=== PATIENT | male | born 1945 | race Caucasian/White ===

== ENCOUNTER → 2019-05-18 | Outpatient (CLI) | payer MEDICARE ==
--- NOTE | 2019-05-18 15:07 | US ---
EXAMINATION TYPE: US bladder DATE OF EXAM: 05/18/2019 COMPARISON: NONE CLINICAL HISTORY: N39.0 Urinary tract infection. EXAM MEASUREMENTS: Post Void Residual Volume: 65.67 mL Color Doppler performed to assess ureteral jets. Bilateral Jets seen: Yes Normal Post Void Residual (less than 50ml): no, 65.67 ml. The urinary bladder is anechoic. IMPRESSION: Elevated post void residual volume.
== END | disposition home or self-care (01) ==
LOC: RADUSWWP 12:43
PROVIDERS: ATTEND Family Medicine
DX: N39.0 Urinary tract infection, site not specified (principal)
CPT/HCPCS: 76857

== ENCOUNTER 2019-07-29 12:53 | Inpatient (IN) | payer MEDICARE ==
[2019-07-29 15:08] LABS: Basophils # (A) 0.1 k/uL (0-0.2); Basophils % (A) 1 %; Eosinophils # (A) 0.1 k/uL (0-0.7); Eosinophils % (A) 1 %; HCT 38.6 % (39.0-53.0); HGB 13.5 gm/dL (13.0-17.5); Lymphocytes # (A) 1.3 k/uL (1.0-4.8); Lymphocytes % (A) 14 %; MCH 30.3 pg (25.0-35.0); MCHC 35.1 g/dL (31.0-37.0); MCV 86.5 fL (80.0-100.0); Mean Platelet Volume 6.5; Monocytes # (A) 0.5 k/uL (0-1.0); Monocytes % (A) 6 %; Neutrophils # (A) 7.5 k/uL (1.3-7.7); Neutrophils % (A) 78 %; Platelet Count 318 k/uL (150-450); RBC 4.46 m/uL (4.30-5.90); RDW 12.6 % (11.5-15.5); WBC 9.7 k/uL (3.8-10.6)
--- NOTE | 2019-07-29 15:13 | XR ---
EXAMINATION TYPE: XR chest 2V DATE OF EXAM: 07/29/2019 COMPARISON: 07/17/2010 HISTORY: Short of breath TECHNIQUE: Frontal and lateral views of the chest are obtained. FINDINGS: There is coarsening of the interstitial pulmonary markings. There is mild infiltrate at jero th lung bases. Heart appears enlarged. There are chest leads. IMPRESSION: There is pulmonary interstitial edema probably related to mild heart failure that is new compared to old exam. Mild bilateral basilar pulmonary infiltrates.
[2019-07-29 15:18] LABS: Partial Thromboplastin Time 26.2 sec (22.0-30.0); Prothrombin Time 10.5 sec (9.0-12.0)
[2019-07-29 15:19] LABS: Albumin 3.8 g/dL (3.5-5.0); Calcium 9.3 mg/dL (8.4-10.2); Potassium 4.4 mmol/L (3.5-5.1); Total Bilirubin 0.9 mg/dL (0.2-1.3); Total Protein 6.6 g/dL (6.3-8.2)
[2019-07-29] MEDS ORDERED: DILTIAZEM DRIP BOLUS FROM BAG 1 MG SOLN IV ONE ×2 (15:29→20:42)
[2019-07-29] MEDS ORDERED: DILTIAZEM 125 MG in SODIUM CHLORIDE 0.9% 100 ML IV SCH (15:30)
--- NOTE | 2019-07-29 15:32 | ED ---
General Adult HPI - General Chief complaint: Shortness of Breath Stated complaint: Sob Time Seen by Provider: 07/29/19 15:00 Source: patient, RN notes reviewed Mode of arrival: wheelchair Limitations: no limitations - History of Present Illness Initial comments: Patient is a pleasant 73-year-old male presenting to the emergency department with dyspnea. Symptoms have been present for the past week. No history of similar symptoms previously. Patient has exertional dyspnea and fatigue as well as orthopnea. No chest pain. No palpitations. Patient thinks his legs are slightly swollen. Patient did go to urgent care [facility] Patient denies any history of atrial fibrillation. - Related Data Home Medications Medication Instructions Recorded Confirmed Aspirin EC [Ecotrin Low Dose] 81 mg PO DAILY 07/29/19 07/29/19 Cholecalciferol [Vitamin D3 (25 1,000 unit PO DAILY 07/29/19 07/29/19 Mcg = 1000 Iu)] Fish Oil/Dha/Epa [Fish Oil 1,200 1 cap PO DAILY 07/29/19 07/29/19 mg Fish Oil] HYDROcodone/APAP 10-325MG [[place] 1 tab PO Q4HR PRN 07/29/19 07/29/19 10-325] Insulin Glargine [Lantus] 20 unit SQ HS 07/29/19 07/29/19 Lisinopril 40 mg PO DAILY 07/29/19 07/29/19 Pravastatin Sodium [Pravachol] 40 mg PO HS 07/29/19 07/29/19 amLODIPine [Norvasc] 10 mg PO DAILY 07/29/19 07/29/19 cloNIDine HCL [Catapres] 0.1 mg PO TID 07/29/19 07/29/19 glipiZIDE [Glucotrol XL] 10 mg PO DAILY 07/29/19 07/29/19 Allergies Allergy/AdvReac Type Severity Reaction Status Date / Time No Known Allergies Allergy Verified 07/29/19 14:48 Review of Systems ROS Statement: Those systems with pertinent positive or pertinent negative responses have been documented in the HPI. ROS Other: All systems not noted in ROS Statement are negative. Constitutional: Denies: fever Eyes: Denies: eye pain ENT: Denies: ear pain Respiratory: Reports: dyspnea Cardiovascular: Reports: dyspnea on exertion, orthopnea. Denies: chest pain, palpitations Endocrine: Reports: fatigue Gastrointestinal: Denies: vomiting Genitourinary: Denies: dysuria Musculoskeletal: Denies: back pain Skin: Denies: rash Neurological: Denies: weakness Past Medical History Past Medical History: Diabetes Mellitus, Hypertension History of Any Multi-Drug Resistant Organisms: None Reported Past Surgical History: Back Surgery, Orthopedic Surgery Additional Past Surgical History / Comment(s): (R) knee, (R) (L) rotator cuff, AAA stent, neck fusion. Past Psychological History: No Psychological Hx Reported Smoking Status: Never smoker Past Alcohol Use History: None Reported Past Drug Use History: None Reported General Exam Limitations: no limitations General appearance: alert, in no apparent distress Head exam: Present: atraumatic Eye exam: Present: normal appearance Neck exam: Present: normal inspection Respiratory exam: Present: normal lung sounds bilaterally Cardiovascular Exam: Present: tachycardia, irregular rhythm Expanded Peripheral pulses: 2+: Radial (R), Radial (L), Dorsalis Pedis (R), Dorsalis Pedis (L) GI/Abdominal exam: Present: soft. Absent: tenderness Extremities exam: Present: pedal edema (Trace bilateral). Absent: calf tenderness Neurological exam: Present: alert Psychiatric exam: Present: normal affect, normal mood Skin exam: Present: normal color Course Vital Signs 07/29/19 07/29/19 07/29/19 13:03 14:58 15:53 Temperature 97.7 F Pulse Rate 66 137 H 152 H Respiratory 20 18 18 Rate Blood Pressure 122/89 123/103 129/102 O2 Sat by Pulse 93 L 96 94 L Oximetry - Reevaluation(s) Reevaluation #1: 07/29/19 16:24 Patient was reevaluated and updated. Case was discussed in detail with Dr. Madden, covering for Dr. Islas, who will admit. EKG Findings - EKG Comments: EKG Findings:: A. fib with RVR, rate 155. QRS 92. QT to 48. QTC 398. Normal axis. Poor R-wave progression. No acute ST change. Medical Decision Making - Lab Data Result diagrams: 07/29/19 14:39 07/29/19 14:39 Lab Results 07/29/19 07/29/19 07/29/19 Range/Units 14:39 14:39 14:39 WBC 9.7 (3.8-10.6) k/uL RBC 4.46 (4.30-5.90) m/uL Hgb 13.5 (13.0-17.5) gm/dL Hct 38.6 L (39.0-53.0) % MCV 86.5 (80.0-100.0) fL MCH 30.3 (25.0-35.0) pg MCHC 35.1 (31.0-37.0) g/dL RDW 12.6 (11.5-15.5) % Plt Count 318 (150-450) k/uL Neutrophils % 78 % Lymphocytes % 14 % Monocytes % 6 % Eosinophils % 1 % Basophils % 1 % Neutrophils # 7.5 (1.3-7.7) k/uL Lymphocytes # 1.3 (1.0-4.8) k/uL Monocytes # 0.5 (0-1.0) k/uL Eosinophils # 0.1 (0-0.7) k/uL Basophils # 0.1 (0-0.2) k/uL PT (9.0-12.0) sec INR (<1.2) APTT (22.0-30.0) sec Sodium 142 (137-145) mmol/L Potassium 4.4 (3.5-5.1) mmol/L Chloride 107 (98-107) mmol/L Carbon Dioxide 24 (22-30) mmol/L Anion Gap 11 mmol/L BUN 22 H (9-20) mg/dL Creatinine 1.34 H (0.66-1.25) mg/dL Est GFR (CKD-EPI)AfAm 60 (>60 ml/min/1.73 sqM) Est GFR (CKD-EPI)NonAf 52 (>60 ml/min/1.73 sqM) Glucose 114 H (74-99) mg/dL Calcium 9.3 (8.4-10.2) mg/dL Total Bilirubin 0.9 (0.2-1.3) mg/dL AST 24 (17-59) U/L ALT 43 (21-72) U/L Alkaline Phosphatase 131 H (38-126) U/L Troponin I (0.000-0.034) ng/mL NT-Pro-B Natriuret Pep 3030 pg/mL Total Protein 6.6 (6.3-8.2) g/dL Albumin 3.8 (3.5-5.0) g/dL 07/29/19 07/29/19 Range/Units 14:39 14:39 WBC (3.8-10.6) k/uL RBC (4.30-5.90) m/uL Hgb (13.0-17.5) gm/dL Hct (39.0-53.0) % MCV (80.0-100.0) fL MCH (25.0-35.0) pg MCHC (31.0-37.0) g/dL RDW (11.5-15.5) % Plt Count (150-450) k/uL Neutrophils % % Lymphocytes % % Monocytes % % Eosinophils % % Basophils % % Neutrophils # (1.3-7.7) k/uL Lymphocytes # (1.0-4.8) k/uL Monocytes # (0-1.0) k/uL Eosinophils # (0-0.7) k/uL Basophils # (0-0.2) k/uL PT 10.5 (9.0-12.0) sec INR 1.0 (<1.2) APTT 26.2 (22.0-30.0) sec Sodium (137-145) mmol/L Potassium (3.5-5.1) mmol/L Chloride (98-107) mmol/L Carbon Dioxide (22-30) mmol/L Anion Gap mmol/L BUN (9-20) mg/dL Creatinine (0.66-1.25) mg/dL Est GFR (CKD-EPI)AfAm (>60 ml/min/1.73 sqM) Est GFR (CKD-EPI)NonAf (>60 ml/min/1.73 sqM) Glucose (74-99) mg/dL Calcium (8.4-10.2) mg/dL Total Bilirubin (0.2-1.3) mg/dL AST (17-59) U/L ALT (21-72) U/L Alkaline Phosphatase (38-126) U/L Troponin I <0.012 (0.000-0.034) ng/mL NT-Pro-B Natriuret Pep pg/mL Total Protein (6.3-8.2) g/dL Albumin (3.5-5.0) g/dL - Radiology Data Radiology results: image reviewed (Chest x-ray shows some CHF. ) Critical Care Time Critical Care Time: Yes Total Critical Care Time: 33 Disposition Clinical Impression: Congestive heart failure, Atrial fibrillation with RVR Disposition: ADMITTED IP TO THIS HOSP Condition: Serious Is patient prescribed a controlled substance at d/c from ED?: No Referrals: Floyd Islas DO [Primary Care Provider] - 1-2 days Decision Time: 16:25
[2019-07-29] MEDS ORDERED: HEPARIN SODIUM,PORCINE 5,000 UNIT/ML 1 ML VIAL IV PRN (16:27)
[2019-07-29] MEDS ORDERED: HEPARIN SODIUM,PORCINE 5,000 UNIT/ML 1 ML VIAL IV ONE (16:27)
[2019-07-29] MEDS: ASPIRIN 325 MG TAB PO STA ×2 (17:02→17:20)
[2019-07-29] MEDS: HEPARIN SOD,PORK IN 0.45% NACL 25,000 UNIT in 0.45% NACL 1 250ML.BAG IV SCH (17:06)
[2019-07-29] MEDS: NITROGLYCERIN OINT 1 INCH/GM PACKET TOPICAL SCH (17:40)
[2019-07-29] MEDS: FUROSEMIDE 10 MG/ML 4 ML VIAL IV SCH (17:41)
[2019-07-29] MEDS ORDERED: HYDROcodone/APAP 10-325MG 1 EACH TAB PO PRN (18:01)
[2019-07-29 20:40] LABS: Glucose,Whole Blood 148 mg/dL (75-99)
[2019-07-29] MEDS: DILTIAZEM 125 MG in SODIUM CHLORIDE 0.9% 100 ML IV SCH (21:03)
[2019-07-29] MEDS: INSULIN DETEMIR (LEVEMIR) 100 UNIT/ML SYR SQ SCH (21:04)
[2019-07-29] MEDS: PRAVASTATIN SODIUM 40 MG TAB PO SCH (21:04)
[2019-07-30] MEDS: NITROGLYCERIN OINT 1 INCH/GM PACKET TOPICAL SCH ×2 (00:14→09:34)
[2019-07-30] MEDS: cloNIDine HCL 0.1 MG TAB PO SCH ×4 (00:15→20:21)
[2019-07-30] MEDS: FUROSEMIDE 10 MG/ML 4 ML VIAL IV SCH ×2 (00:17→09:39)
[2019-07-30 05:58] LABS: Basophils % (A) 1 %; Eosinophils # (A) 0.1 k/uL (0-0.7); Eosinophils % (A) 2 %; HCT 36.6 % (39.0-53.0); HGB 12.7 gm/dL (13.0-17.5); Lymphocytes # (A) 1.3 k/uL (1.0-4.8); Lymphocytes % (A) 17 %; MCH 30.2 pg (25.0-35.0); MCHC 34.6 g/dL (31.0-37.0); MCV 87.3 fL (80.0-100.0); Mean Platelet Volume 6.3; Monocytes # (A) 0.5 k/uL (0-1.0); Monocytes % (A) 7 %; Neutrophils # (A) 5.8 k/uL (1.3-7.7); Neutrophils % (A) 73 %; Platelet Count 318 k/uL (150-450); RBC 4.19 m/uL (4.30-5.90); RDW 12.9 % (11.5-15.5)
[2019-07-30 06:09] LABS: Calcium 8.6 mg/dL (8.4-10.2); Potassium 3.9 mmol/L (3.5-5.1)
[2019-07-30 06:12] LABS: Glucose,Whole Blood 98 mg/dL (75-99)
[2019-07-30] MEDS: glipiZIDE 5 MG TAB PO SCH ×2 (06:23→17:15)
[2019-07-30] MEDS ORDERED: ASPIRIN 325 MG TAB PO SCH (09:00)
[2019-07-30] MEDS ORDERED: NON FORMULARY DRUG (Aspirin Ec 81 MG) PO SCH (09:00)
[2019-07-30] MEDS ORDERED: NON FORMULARY DRUG (Fish Oil/Dha/Epa [Fish Oil 1,200 Mg Fish Oil] 1 CAP) PO SCH (09:00)
[2019-07-30] MEDS ORDERED: DILTIAZEM DRIP BOLUS FROM BAG 1 MG SOLN IV ONE ×2 (09:26→11:56)
[2019-07-30] MEDS ORDERED: METOPROLOL TARTRATE 25 MG TAB PO SCH (09:30)
[2019-07-30] MEDS: amLODIPine 10 MG TAB PO SCH (09:33)
[2019-07-30] MEDS: CHOLECALCIFEROL 1,000 UNIT TAB PO SCH (09:34)
[2019-07-30] MEDS: LISINOPRIL 20 MG TAB PO SCH (09:34)
[2019-07-30] MEDS: DILTIAZEM 125 MG in SODIUM CHLORIDE 0.9% 100 ML IV SCH ×2 (11:16→19:03)
[2019-07-30 12:23] LABS: Glucose,Whole Blood 112 mg/dL (75-99)
--- NOTE | 2019-07-30 12:37 | P.CRDCN ---
History of Present Illness Consult date: 07/30/19 Requesting physician: Alberto Madden Consult reason: atrial fibrillation, congestive heart failure Chief complaint: Shortness of breath History of present illness: This is a 73-year-old gentleman with history of hypertension, diabetes, hyperlipidemia, prior history of smoking, history of abdominal aortic aneurysm for which he underwent repair by Dr. Ventura several years ago. Presented to the hospital on this occasion with symptoms of worsening shortness of breath for the past one week or so. Chest x-ray on presentation here showed pulmonary interstitial edema likely related to mild heart failure which is new as compared with prior exam. Mild bilateral basilar pulmonary infiltrates. EKG on admission shows atrial fibrillation with a rapid ventricular response. Blood pressure 108/60 with a heart rate of 140, 95% on 2 L of oxygen. White blood cell count 8.0, hemoglobin 12.7, platelet count 318. D-dimer 1.06, sodium 142, potassium 3.9, BUN 25 and creatinine 1.5, on admission the creatinine was 1.3. Troponins negative 3. BNP level 3030. TSH 1.4. At the time of my examination this morning, patient generally does not look well, he still complaining of feeling some shortness of breath, denies any chest discomfort. Denies any palpitations. According to him, this atrial fibrillation is new. Past Medical History Past Medical History: Diabetes Mellitus, Hypertension History of Any Multi-Drug Resistant Organisms: None Reported Past Surgical History: Back Surgery, Orthopedic Surgery Additional Past Surgical History / Comment(s): (R) knee, (R) (L) rotator cuff, AAA stent, neck fusion. Past Psychological History: No Psychological Hx Reported Smoking Status: Former smoker Past Alcohol Use History: None Reported Past Drug Use History: None Reported Medications and Allergies Home Medications Medication Instructions Recorded Confirmed Type Aspirin EC [Ecotrin Low Dose] 81 mg PO DAILY 07/29/19 07/29/19 History Cholecalciferol [Vitamin D3 (25 1,000 unit PO DAILY 07/29/19 07/29/19 History Mcg = 1000 Iu)] Fish Oil/Dha/Epa [Fish Oil 1,200 1 cap PO DAILY 07/29/19 07/29/19 History mg Fish Oil] HYDROcodone/APAP 10-325MG [[place] 1 tab PO Q4HR PRN 07/29/19 07/29/19 History 10-325] Insulin Glargine [Lantus] 20 unit SQ HS 07/29/19 07/29/19 History Lisinopril 40 mg PO DAILY 07/29/19 07/29/19 History Pravastatin Sodium [Pravachol] 40 mg PO HS 07/29/19 07/29/19 History amLODIPine [Norvasc] 10 mg PO DAILY 07/29/19 07/29/19 History cloNIDine HCL [Catapres] 0.1 mg PO TID 07/29/19 07/29/19 History glipiZIDE [Glucotrol XL] 10 mg PO DAILY 07/29/19 07/29/19 History Allergies Allergy/AdvReac Type Severity Reaction Status Date / Time No Known Allergies Allergy Verified 07/29/19 14:48 Physical Exam Vitals: Vital Signs Temp Pulse Pulse Resp BP BP Pulse Ox 07/30/19 11:20 97.6 F 138 H 22 107/59 95 07/30/19 08:00 98.1 F 150 H 22 134/84 93 L 07/30/19 03:50 133 H 20 106/66 93 L 07/30/19 00:00 98 F 141 H 18 127/80 96 07/29/19 20:00 97.9 F 140 H 18 117/69 94 L 07/29/19 17:09 163 H 18 101/64 95 07/29/19 15:53 152 H 18 129/102 94 L 07/29/19 14:58 137 H 18 123/103 96 07/29/19 13:03 97.7 F 66 20 122/89 93 L Intake and Output 07/29/19 07/30/19 07/30/19 22:59 06:59 14:59 Intake Total 400 153.748 212.432 Output Total 600 Balance 400 -446.252 212.432 Intake: Intake, IV Titration 153.748 212.432 Amount Diltiazem 125 mg In 125 Sodium Chloride 0.9% 100 ml @ 10 MG/HR 10 mls/hr IV .[id number] [facility] Rx#: [id number] Heparin Sod,Pork in 0.45% 153.748 87.432 NaCl 25,000 unit In 0.45 % NaCl 1 250ml.bag @ 8.62 UNITS/KG/HR 10.01 mls/hr IV .Q24H [facility] Rx#: [id number] Oral 400 0 Output: Urine 600 Other: # Voids 1 175 Weight 114 kg PHYSICAL EXAMINATION: GENERAL: 73-year-old gentleman in no acute distress at the time of my examination HEENT: Head is atraumatic, normocephalic. Pupils equal, round. Sclera anicteric. Conjunctiva are clear. Mucous membranes of the mouth are moist. Neck is supple. There is no elevated jugular venous pressure.No bruit is heard. HEART EXAMINATION: Heart S1 and S2 irregularly irregular CHEST EXAMINATION: Lungs reveal diminished air entry to bilateral bases with fine rales heard bilaterally. ABDOMEN: Soft, obese, nontender. Bowel sounds are heard. No organomegaly noted. EXTREMITIES: 2+ peripheral pulses with 1+ evidence of peripheral edema and no calf tenderness noted. NEUROLOGIC patient is awake, alert and oriented X3. . Results 07/30/19 05:24 07/30/19 05:24 Cardiac Enzymes 07/29/19 07/29/19 07/29/19 Range/Units 14:39 14:39 20:57 AST 24 (17-59) U/L Troponin I <0.012 0.012 (0.000-0.034) ng/mL 07/30/19 Range/Units 05:24 AST (17-59) U/L Troponin I <0.012 (0.000-0.034) ng/mL Coagulation 07/29/19 07/29/19 07/30/19 Range/Units 14:39 23:41 05:24 PT 10.5 (9.0-12.0) sec APTT 26.2 30.4 H 34.4 H (22.0-30.0) sec 07/30/19 Range/Units 11:00 PT (9.0-12.0) sec APTT 46.8 H (22.0-30.0) sec CBC 07/29/19 07/30/19 Range/Units 14:39 05:24 WBC 9.7 8.0 (3.8-10.6) k/uL RBC 4.46 4.19 L (4.30-5.90) m/uL Hgb 13.5 12.7 L (13.0-17.5) gm/dL Hct 38.6 L 36.6 L (39.0-53.0) % Plt Count 318 318 (150-450) k/uL Comprehensive Metabolic Panel 07/29/19 07/30/19 Range/Units 14:39 05:24 Sodium 142 142 (137-145) mmol/L Potassium 4.4 3.9 (3.5-5.1) mmol/L Chloride 107 107 (98-107) mmol/L Carbon Dioxide 24 26 (22-30) mmol/L BUN 22 H 25 H (9-20) mg/dL Creatinine 1.34 H 1.50 H (0.66-1.25) mg/dL Glucose 114 H 89 (74-99) mg/dL Calcium 9.3 8.6 (8.4-10.2) mg/dL AST 24 (17-59) U/L ALT 43 (21-72) U/L Alkaline Phosphatase 131 H (38-126) U/L Total Protein 6.6 (6.3-8.2) g/dL Albumin 3.8 (3.5-5.0) g/dL Current Medications Generic Name Dose Route Start Last Admin Trade Name Freq PRN Reason Stop Dose Admin Hydrocodone Bitart/Acetaminophen 1 each 07/29/19 18:01 [place] 10 PO Q4HR PRN Pain Amlodipine Besylate 10 mg 07/30/19 09:00 07/30/19 09:33 Norvasc PO Not Given DAILY [facility] Aspirin 81 mg 07/31/19 09:00 Aspirin PO DAILY [facility] Cholecalciferol 1,000 unit 07/30/19 09:00 07/30/19 09:34 Vitamin D3 (25 Mcg = 1000 Iu) PO 1,000 unit DAILY [facility] Administration Clonidine 0.1 mg 07/29/19 22:00 07/30/19 09:34 Catapres PO 0.1 mg TID [facility] Administration Glipizide 5 mg 07/30/19 07:30 07/30/19 06:23 Glucotrol PO Not Given AC-BID [facility] Heparin Sodium (Porcine) 0 unit 07/29/19 16:27 Heparin IV PER PROTOCOL PRN Low PTT Protocol Heparin Sodium/Sodium Chloride 250 mls @ 10.01 mls/hr 07/29/19 16:30 07/30/19 11:32 25,000 unit/ Sodium Chloride IV 16.62 units/kg/hr .Q24H [facility] 19.299 mls/hr Titration Protocol 8.62 UNITS/KG/HR Diltiazem HCl 125 mg/ Sodium 125 mls @ 10 mls/hr 07/29/19 20:45 07/30/19 11:16 Chloride IV 10 mg/hr .[id number] [facility] 10 mls/hr Administration 10 MG/HR Insulin Detemir 20 unit 07/29/19 21:00 07/29/19 21:04 Levemir SQ 20 unit HS [facility] Administration Lisinopril 40 mg 07/30/19 09:00 07/30/19 09:34 Zestril PO 40 mg DAILY [facility] Administration Metoprolol Tartrate 50 mg 07/30/19 16:00 Lopressor PO TID [facility] Pravastatin Sodium 40 mg 07/29/19 21:00 07/29/19 21:04 Pravachol PO 40 mg HS [facility] Administration Intake and Output 07/29/19 07/30/19 07/30/19 22:59 06:59 14:59 Intake Total 400 153.748 212.432 Output Total 600 Balance 400 -446.252 212.432 Intake: Intake, IV Titration 153.748 212.432 Amount Diltiazem 125 mg In 125 Sodium Chloride 0.9% 100 ml @ 10 MG/HR 10 mls/hr IV .[id number] [facility] Rx#: [id number] Heparin Sod,Pork in 0.45% 153.748 87.432 NaCl 25,000 unit In 0.45 % NaCl 1 250ml.bag @ 8.62 UNITS/KG/HR 10.01 mls/hr IV .Q24H [facility] Rx#: [id number] Oral 400 0 Output: Urine 600 Other: # Voids 1 175 Weight 114 kg 07/30/19 05:24 07/30/19 05:24 EKG Interpretations (text) EKG shows atrial fibrillation with rapid ventricular response Assessment and Plan Plan: Assessment and plan #1 atrial fibrillation with rapid ventricular response, appears to be of new onset #2 congestive cardiac failure, LV function unknown #3 hypertension #4 diabetes #5 hyperlipidemia #6 prior history of nicotine dependence #7 history of abdominal aortic aneurysm with prior repair #8 abnormal d-dimer Plan We will obtain an echocardiogram with Doppler study, obtain ultrasound of the abdomen because of prior history of abdominal aortic aneurysm, continue IV heparin, add Lopressor 50 3 times a day to the medication regime, increase Cardizem, discontinue IV Lasix and reassess in the morning. Because of the elevated d-dimer, we will also request a lung perfusion scan be performed. Further recommendations to follow. DNP note has been reviewed, I agree with a documented findings and plan of care. Patient was seen and examined.
[2019-07-30 14:08] VITALS: BMI 34.0
--- NOTE | 2019-07-30 14:36 | US ---
EXAMINATION TYPE: US abdomen complete DATE OF EXAM: 07/30/2019 COMPARISON: NONE CLINICAL HISTORY: hx of aortic aneurysm repair. EXAM MEASUREMENTS: Liver Length: 17. 7 cm Gallbladder Wall: 0.2 cm CBD: 0.3 cm Spleen: 11.3 cm Right Kidney: 10.6 x 4.7 x 4.6 cm Left Kidney: 10.7 x 4.5 x 4.7 cm Patient of large body habitus with extensive overlying bowel gas, technically difficult study. Pancreas: wnl Liver: Increased attenuation, upper limits of normal in size Gallbladder: wnl Evidence for sonographic Agrawal's sign: No CBD: wnl Spleen: wnl Right Kidney: lower pole cyst measures 3.1 x 3.5 x 3.7cm Left Kidney: wnl Upper IVC: wnl Abd Aorta: limited visualization, portions visualized appear wnl FF in LUQ suggestive of left pleural effusion IMPRESSION: 1. Increased attenuation of liver can be seen with fatty infiltration or hepatic steatosis. 2. Small left pleural effusion #3 simple appearing right renal cyst.
[2019-07-30] MEDS: METOPROLOL TARTRATE 50 MG TAB PO SCH ×2 (15:41→20:21)
--- NOTE | 2019-07-30 16:25 | NM ---
EXAMINATION TYPE: NM pul vent and perfuse DATE OF EXAM: 07/30/2019 COMPARISON: Correlation radiograph 07/29/2019 HISTORY: 73-year-old male difficulty breathing, shortness of breath TECHNIQUE: Utilizing inhalation of 69.4 mCi Tc 99m DTPA aerosol and intravenous injection of 4.98 mC i of Tc 99m MAA, ventilation and perfusion images are acquired post injection in multiple projections . FINDINGS: No mismatched perfusion defects. Ventilation images show some clumping of tracer within the central a irways. IMPRESSION: Very low probability for pulmonary embolus. Some clumping of tracer within the central airways can be seen with COPD. Clinically correlate.
[2019-07-30 17:04] LABS: Glucose,Whole Blood 216 mg/dL (75-99)
[2019-07-30] MEDS: PRAVASTATIN SODIUM 40 MG TAB PO SCH (20:21)
[2019-07-30 20:24] LABS: Glucose,Whole Blood 249 mg/dL (75-99)
[2019-07-30] MEDS: INSULIN DETEMIR (LEVEMIR) 100 UNIT/ML SYR SQ SCH (20:51)
[2019-07-30] MEDS: HEPARIN SOD,PORK IN 0.45% NACL 25,000 UNIT in 0.45% NACL 1 250ML.BAG IV SCH (20:52)
--- NOTE | 2019-07-30 21:03 | P.HPIM ---
History of Present Illness H&P Date: 07/30/19 Chief Complaint: short of breath history of presenting complaint: This is a 73-year-old patient of Dr. Ilsas.chronic stable medical conditions include diabetes, hypertension, chronic back pain. Patient for 1 week and then progressively getting short of breath. Slight cough. No fever or chills. He does heart racing. Appetite is okay. No sputum production. Patient is found to be in rapid went to tolerate. With A. fib. Was started on Cardizem drip. Also found to be in CHF.problem IV Lasix. Also had some edema. Admitted to the cardiology floor. No prior history of atrial fibrillation and CHF. Review of systems: GEN.: [tired and short of breath] EYES: [None] HEENT: [None] NECK: [None] RESPIRATORY: [as above] CARDIOVASCULAR: [as abovee] GASTROINTESTINAL: [None] GENITOURINARY: [None] MUSCULOSKELETAL: [some joint painse] LYMPHATICS: [None] HEMATOLOGICAL: [None] PSYCHIATRY: [None] NEUROLOGICAL: [None] social history: . Does smoke in the past. Family history: Reviewed, noncontributory to presentation Physical examination: VITAL SIGNS: [97.7, 137, 18, 123/103, 96% on 2 L] GENERAL: [BMI 34.1, propped up, short of breath]. EYES: [Pupils equal. Conjunctiva rosa m]l. HEENT: [External appearance of nose and ears normal, oral cavity grossly no rmal]. NECK: [JVD possibly raisedd; masses not palpable]. HEART: [heart sounds irregular; someedema]. LUNGS:[ Respiratory rate increased, decreased breath sounds]. ABDOMEN: [Soft, nontender, liver spleen not palpable, no masses palpable]. PSYCH: [Alert and oriented x3; mood and affect anxious]l. NEUROLOGICAL: [Cranial nerves grossly intact; no facial asymmetry, power and sensation grossly intact]. LYMPHATICS: [No lymph nodes palpable in the axilla and neck] INVESTIGATIONS, reviewed in the clinical context: white count 9.7 hemoglobin 13.5 potassium 4.4 bun 22 creatinine 1.34 EKG tracing personally reviewed by me-Atrial fibrillation rapid ventricular rate in the 140s Chest x-ray film personally reviewed by me-Pulmonary edema some cardiomegaly Assessment: -New onset of atrial fibrillation with rapid ventricular rate, uncontrolled -Acute congestive heart failure exacerbation, with contribution from atrial fibrillation, EF not known -diabetes mellitus type 2 on insulin -Essential hypertension Plan: Patient started IV Cardizem drip. Also in IV heparin. Cardiology was con sulted. Was also started on IV Lasix. Earlier today to Lasix was discontinued by cardiology. Accu-Cheks will be followed.2-D echo is pending. Heart rate is soft and was still running high. Care was discussed the patient the bedside. Question were answered. Past Medical History Past Medical History: Diabetes Mellitus, Hypertension History of Any Multi-Drug Resistant Organisms: None Reported Past Surgical History: Back Surgery, Orthopedic Surgery Additional Past Surgical History / Comment(s): (R) knee, (R) (L) rotator cuff, AAA stent, neck fusion. Past Psychological History: No Psychological Hx Reported Smoking Status: Former smoker Past Alcohol Use History: None Reported Past Drug Use History: None Reported Medications and Allergies Home Medications Medication Instructions Recorded Confirmed Type Aspirin EC [Ecotrin Low Dose] 81 mg PO DAILY 07/29/19 07/29/19 History Cholecalciferol [Vitamin D3 (25 1,000 unit PO DAILY 07/29/19 07/29/19 History Mcg = 1000 Iu)] Fish Oil/Dha/Epa [Fish Oil 1,200 1 cap PO DAILY 07/29/19 07/29/19 History mg Fish Oil] HYDROcodone/APAP 10-325MG [[place] 1 tab PO Q4HR PRN 07/29/19 07/29/19 History 10-325] Insulin Glargine [Lantus] 20 unit SQ HS 07/29/19 07/29/19 History Lisinopril 40 mg PO DAILY 07/29/19 07/29/19 History Pravastatin Sodium [Pravachol] 40 mg PO HS 07/29/19 07/29/19 History amLODIPine [Norvasc] 10 mg PO DAILY 07/29/19 07/29/19 History cloNIDine HCL [Catapres] 0.1 mg PO TID 07/29/19 07/29/19 History glipiZIDE [Glucotrol XL] 10 mg PO DAILY 07/29/19 07/29/19 History Allergies Allergy/AdvReac Type Severity Reaction Status Date / Time No Known Allergies Allergy Verified 07/29/19 14:48 Physical Exam Vitals: Vital Signs Temp Pulse Pulse Resp BP BP Pulse Ox 07/30/19 08:00 98.1 F 150 H 22 134/84 93 L 07/30/19 03:50 133 H 20 106/66 93 L 07/30/19 00:00 98 F 141 H 18 127/80 96 07/29/19 20:00 97.9 F 140 H 18 117/69 94 L 07/29/19 17:09 163 H 18 101/64 95 07/29/19 15:53 152 H 18 129/102 94 L 07/29/19 14:58 137 H 18 123/103 96 07/29/19 13:03 97.7 F 66 20 122/89 93 L Intake and Output 07/29/19 07/30/19 07/30/19 22:59 06:59 14:59 Intake Total 400 153.748 0 Output Total 600 Balance 400 -446.252 0 Intake: Intake, IV Titration 153.748 Amount Heparin Sod,Pork in 0.45% 153.748 NaCl 25,000 unit In 0.45 % NaCl 1 250ml.bag @ 8.62 UNITS/KG/HR 10.01 mls/hr IV .Q24H [facility] Rx#: [id number] Oral 400 0 Output: Urine 600 Other: # Voids 1 175 Weight 114 kg Results CBC & Chem 7: 07/30/19 05:24 07/30/19 05:24 Labs: Abnormal Lab Results - Last 24 Hours (Table) 07/29/19 07/29/19 07/29/19 Range/Units 14:39 14:39 20:38 RBC (4.30-5.90) m/uL Hgb (13.0-17.5) gm/dL Hct 38.6 L (39.0-53.0) % APTT (22.0-30.0) sec BUN 22 H (9-20) mg/dL Creatinine 1.34 H (0.66-1.25) mg/dL Glucose 114 H (74-99) mg/dL POC Glucose (mg/dL) 148 H (75-99) mg/dL Alkaline Phosphatase 131 H (38-126) U/L 07/29/19 07/30/19 07/30/19 Range/Units 23:41 05:24 05:24 RBC 4.19 L (4.30-5.90) m/uL Hgb 12.7 L (13.0-17.5) gm/dL Hct 36.6 L (39.0-53.0) % APTT 30.4 H 34.4 H (22.0-30.0) sec BUN (9-20) mg/dL Creatinine (0.66-1.25) mg/dL Glucose (74-99) mg/dL POC Glucose (mg/dL) (75-99) mg/dL Alkaline Phosphatase (38-126) U/L 07/30/19 Range/Units 05:24 RBC (4.30-5.90) m/uL Hgb (13.0-17.5) gm/dL Hct (39.0-53.0) % APTT (22.0-30.0) sec BUN 25 H (9-20) mg/dL Creatinine 1.50 H (0.66-1.25) mg/dL Glucose (74-99) mg/dL POC Glucose (mg/dL) (75-99) mg/dL Alkaline Phosphatase (38-126) U/L
[2019-07-31 05:51] LABS: Basophils % (A) 1 %; Eosinophils # (A) 0.2 k/uL (0-0.7); Eosinophils % (A) 2 %; HCT 35.6 % (39.0-53.0); HGB 12.1 gm/dL (13.0-17.5); Lymphocytes # (A) 1.6 k/uL (1.0-4.8); Lymphocytes % (A) 18 %; MCH 29.7 pg (25.0-35.0); MCHC 33.9 g/dL (31.0-37.0); MCV 87.4 fL (80.0-100.0); Mean Platelet Volume 6.8; Monocytes # (A) 0.6 k/uL (0-1.0); Monocytes % (A) 7 %; Neutrophils % (A) 71 %; Platelet Count 330 k/uL (150-450); RBC 4.07 m/uL (4.30-5.90); RDW 12.9 % (11.5-15.5); WBC 8.5 k/uL (3.8-10.6)
[2019-07-31 06:35] LABS: Glucose,Whole Blood 123 mg/dL (75-99)
[2019-07-31] MEDS: CHOLECALCIFEROL 1,000 UNIT TAB PO SCH (09:20)
[2019-07-31] MEDS: LISINOPRIL 20 MG TAB PO SCH (09:20)
[2019-07-31] MEDS: ASPIRIN 81 MG PO SCH (09:20)
[2019-07-31] MEDS: METOPROLOL TARTRATE 50 MG TAB PO SCH ×3 (09:20→20:34)
[2019-07-31] MEDS: glipiZIDE 5 MG TAB PO SCH ×2 (09:20→17:50)
[2019-07-31] MEDS: cloNIDine HCL 0.1 MG TAB PO SCH ×3 (09:21→20:34)
[2019-07-31] MEDS: amLODIPine 10 MG TAB PO SCH (09:21)
[2019-07-31] MEDS ORDERED: AMIODARONE 360 MG in DEXTROSE 5% IN WATER 200 ML IV ONE ×2 (10:55)
[2019-07-31] MEDS ORDERED: DEXTROSE 5% IN WATER 100 ML with AMIODARONE 150 MG IV ONE (10:55)
[2019-07-31] MEDS: HEPARIN SOD,PORK IN 0.45% NACL 25,000 UNIT in 0.45% NACL 1 250ML.BAG IV SCH ×2 (11:35→20:38)
[2019-07-31 11:43] LABS: Glucose,Whole Blood 189 mg/dL (75-99)
[2019-07-31] MEDS: DILTIAZEM 125 MG in SODIUM CHLORIDE 0.9% 100 ML IV SCH (12:09)
[2019-07-31] MEDS ORDERED: FUROSEMIDE 10 MG/ML 4 ML VIAL IV STA (12:51)
--- NOTE | 2019-07-31 13:01 | ECHOF ---
Referral Reason:afib MEASUREMENTS -------- HEIGHT: 182.9 cm WEIGHT: 113.9 kg BP: 107/59 RVIDd: 3.7 cm (< 3.3) IVSd: 1.4 cm (0.6 - 1.1) LVIDd: 3.8 cm (3.9 - 5.3) LVPWd: 1.3 cm (0.6 - 1.1) IVSs: 1.5 cm LVIDs: 3.7 cm LVPWs: 2.1 cm LA Diam: 5.2 cm (2.7 - 3.8) LAESV Index (A-L): 47.25 ml/m Ao Diam: 3.7 cm (2.0 - 3.7) AV Cusp: 1.1 cm (1.5 - 2.6) LA Diam: 4.1 cm (2.7 - 3.8) MV EXCURSION: 19.913 mm (> 18.000) MV EF SLOPE: 136 mm/s (70 - 150) EPSS: 1.3 cm RAP: 5.00 mmHg RVSP: 31.57 mmHg FINDINGS -------- Atrial fibrillation. This was a technically adequate study. The left ventricular size is normal. There is mild concentric left ventricular hypertrophy. Overa ll left ventricular systolic function is low-normal with, an EF between 50 - 55 %. Left ventricular fillimg pressure cannot be estimated due to Atrial fibrillation. The right ventricle is normal in size. The right atrial size is normal. There is mild aortic valve sclerosis. There is no evidence of aortic regurgitation. Mild mitral annular calcification present. Mild mitral regurgitation is present. Mild tricuspid regurgitation present. There is no evidence of pulmonary hypertension. The right v entricular systolic pressure, as measured by Doppler, is 31.57mmHg. Trace/mild (physiologic) pulmonic regurgitation. The aortic root size is normal. There is no pericardial effusion. CONCLUSIONS -------- 1. Atrial fibrillation. 2. This was a technically adequate study. 3. The left ventricular size is normal. 4. There is mild concentric left ventricular hypertrophy. 5. Overall left ventricular systolic function is low-normal with, an EF between 50 - 55 %. 6. Left ventricular fillimg pressure cannot be estimated due to Atrial fibrillation. 7. The right ventricle is normal in size. 8. The right atrial size is normal. 9. There is mild aortic valve sclerosis. 10. Mild mitral annular calcification present. 11. Mild mitral regurgitation is present. 12. Mild tricuspid regurgitation present. 13. There is no evidence of pulmonary hypertension. 14. The right ventricular systolic pressure, as measured by Doppler, is 31.57mmHg. 15. Trace/mild (physiologic) pulmonic regurgitation. 16. The aortic root size is normal. 17. There is no pericardial effusion. [employer]: Lakshmi Medley RDCS
--- NOTE | 2019-07-31 16:08 | P.PN ---
Subjective Progress Note Date: 07/31/19 This is a 73-year-old gentleman with history of hypertension, diabetes, hyperlipidemia, prior history of smoking, history of abdominal aortic aneurysm for which he underwent repair by Dr. Ventura several years ago. Presented to the hospital on this occasion with symptoms of worsening shortness of breath for the past one week or so. Chest x-ray on presentation here showed pulmonary interstitial edema likely related to mild heart failure which is new as compared with prior exam. Mild bilateral basilar pulmonary infiltrates. EKG on admission shows atrial fibrillation with a rapid ventricular response. Blood pressure 108/60 with a heart rate of 140, 95% on 2 L of oxygen. White blood c ell count 8.0, hemoglobin 12.7, platelet count 318. D-dimer 1.06, sodium 142, potassium 3.9, BUN 25 and creatinine 1.5, on admission the creatinine was 1.3. Troponins negative 3. BNP level 3030. TSH 1.4. At the time of my examination this morning, patient generally does not look well, he still complaining of feeling some shortness of breath, denies any chest discomfort. Denies any palpitations. According to him, this atrial fibrillation is new. 07/31/2019 Patient seen and examined this morning, continues to feel short of breath, but states that it is somewhat improved from yesterday. Discontinue still have a rapid heart rate in the 1 teens to 120s, blood pressure 115/70, 95% on 2 L of oxygen. BMP from today is pending. We will increase the dose of metoprolol to 50 mg by mouth 3 times a day today. Start the patient on IV amiodarone. VQ scan was negative for pulmonary embolism, echo revealed normal left ventricular systolic function. Objective - Vital Signs Vital signs: Vital Signs Temp 97.8 F 07/31/19 11:10 Pulse 102 H 07/31/19 12:00 Resp 20 07/31/19 11:10 BP 115/79 07/31/19 12:00 Pulse Ox 95 07/31/19 11:10 Intake & Output 07/30/19 07/31/19 07/31/19 18:59 06:59 18:59 Intake Total 701.252 77.833 240 Output Total 275 200 200 Balance 426.252 -122.167 40 Weight 114 kg 115.4 kg Intake: Intake, IV Titration 221.252 77.833 Amount Diltiazem 125 mg In 125 77.833 Sodium Chloride 0.9% 100 ml @ 10 MG/HR 10 mls/hr IV .[id number] ALICE Rx#: [id number] Heparin Sod,Pork in 0.45% 96.252 NaCl 25,000 unit In 0.45 % NaCl 1 250ml.bag @ 8.62 UNITS/KG/HR 10.01 mls/hr IV .Q24H ALICE Rx#: [id number] Oral 480 240 Output: Urine 275 200 200 Other: Voiding Method Urinal Urinal # Voids 175 1 1 - Exam PHYSICAL EXAMINATION: GENERAL: 73-year-old gentleman in no acute distress at the time of my examination HEENT: Head is atraumatic, normocephalic. Pupils equal, round. Sclera anicteric. Conjunctiva are clear. Mucous membranes of the mouth are moist. Neck is supple. There is no elevated jugular venous pressure.No bruit is heard. HEART EXAMINATION: Heart S1 and S2 irregularly irregular CHEST EXAMINATION: Lungs reveal diminished air entry to bilateral bases with fine rales heard bilaterally. ABDOMEN: Soft, obese, nontender. Bowel sounds are heard. No organomegaly noted. EXTREMITIES: 2+ peripheral pulses with 1+ evidence of peripheral edema and no calf tenderness noted. NEUROLOGIC patient is awake, alert and oriented X3. - Labs CBC & Chem 7: 07/31/19 05:25 07/30/19 05:24 Labs: Abnormal Lab Results - Last 24 Hours (Table) 07/30/19 07/30/19 07/30/19 Range/Units 16:52 16:58 20:22 RBC (4.30-5.90) m/uL Hgb (13.0-17.5) gm/dL Hct (39.0-53.0) % APTT 64.7 H (22.0-30.0) sec POC Glucose (mg/dL) 216 H 249 H (75-99) mg/dL 07/31/19 07/31/19 07/31/19 Range/Units 05:25 05:25 06:32 RBC 4.07 L (4.30-5.90) m/uL Hgb 12.1 L (13.0-17.5) gm/dL Hct 35.6 L (39.0-53.0) % APTT 62.1 H (22.0-30.0) sec POC Glucose (mg/dL) 123 H (75-99) mg/dL 07/31/19 Range/Units 11:42 RBC (4.30-5.90) m/uL Hgb (13.0-17.5) gm/dL Hct (39.0-53.0) % APTT (22.0-30.0) sec POC Glucose (mg/dL) 189 H (75-99) mg/dL Assessment and Plan Plan: Assessment and plan #1 atrial fibrillation with rapid ventricular response, appears to be of new onset #2 congestive cardiac failure, LV function unknown #3 hypertension #4 diabetes #5 hyperlipidemia #6 prior history of nicotine dependence #7 history of abdominal aortic aneurysm with prior repair #8 abnormal d-dimer Plan Echo cardiogram with Doppler study revealed a normal left ventricular systolic function. We will start the patient on IV amiodarone today for more optimal heart rate control, increase the dose of beta asa. Discontinue current dose of IV Lasix. Check lytes BUN and creatinine today and daily. DNP note has been reviewed, I agree with a documented findings and plan of care. Patient was seen and examined.
[2019-07-31 17:13] LABS: Potassium 4.1 mmol/L (3.5-5.1)
[2019-07-31 17:33] LABS: Glucose,Whole Blood 182 mg/dL (75-99)
[2019-07-31] MEDS: AMIODARONE 300 MG in DEXTROSE 5% IN WATER 250 ML IV SCH ×2 (18:00)
[2019-07-31] MEDS: PRAVASTATIN SODIUM 40 MG TAB PO SCH (20:34)
[2019-07-31 20:35] LABS: Glucose,Whole Blood 168 mg/dL (75-99)
[2019-07-31] MEDS: INSULIN DETEMIR (LEVEMIR) 100 UNIT/ML SYR SQ SCH (20:35)
--- NOTE | 2019-07-31 21:50 | P.PN ---
Progress Note - Text Progress Note Date: 07/31/19 Chief Complaint: short of breath Interval history: This is a 73-year-old patient of Dr. Islas.chronic stable medical conditions include diabetes, hypertension, chronic back pain. Patient for 1 week and then progressively getting short of breath. Slight cough. No fever or chills. He does heart racing. Appetite is okay. No sputum production. Patient is found to be in rapid went to tolerate. With A. fib. Was started on Cardizem drip. Also found to be in CHF.problem IV Lasix. Also had some edema. Admitted to the cardiology floor. No prior history of atrial fibrillation and CHF. Admitted with atrial fibrillation with rapid ventricular rate and CHF exac erbation. Today-heart rate is still up. Started on amiodarone by cardiology. Patient's short of breath. At rest. Daughter the bedside. Review of systems: Was done for constitutional, cardiovascular, GI, pulmonary. relevant finding as above Active Medications Hydrocodone Bitart/Acetaminophen ([place] 10) 1 each PO Q4HR PRN PRN Reason: Pain Aspirin (Aspirin) 81 mg PO DAILY [facility] Last Admin: 07/31/19 09:20 Dose: 81 mg Documented by: Cholecalciferol (Vitamin D3 (25 Mcg = 1000 Iu)) 1,000 unit PO DAILY [facility] Last Admin: 07/31/19 09:20 Dose: 1,000 unit Documented by: Clonidine (Catapres) 0.1 mg PO TID [facility] Last Admin: 07/31/19 20:34 Dose: 0.1 mg Documented by: Glipizide (Glucotrol) 5 mg PO AC-BID [facility] Last Admin: 07/31/19 17:50 Dose: 5 mg Documented by: Heparin Sodium (Porcine) (Heparin) 0 unit IV PER PROTOCOL PRN; Protocol PRN Reason: Low PTT Heparin Sodium/Sodium Chloride (25,000 unit/ Sodium Chloride) 250 mls @ 10.01 mls/hr IV .Q24H [facility]; Protocol Last Admin: 07/31/19 20:38 Dose: 16.62 units/kg/hr, 19.299 mls/hr Documented by: Amiodarone HCl 300 mg/ (Dextrose/Water) 250 mls @ 25 mls/hr IV .Q10H [facility]; Protocol Stop: 08/01/19 10:54 Last Admin: 07/31/19 18:00 Dose: 0.5 mg/min, 25 mls/hr Documented by: Insulin Detemir (Levemir) 20 unit SQ [facility] Last Admin: 07/31/19 20:35 Dose: 20 unit Documented by: Lisinopril (Zestril) 40 mg PO DAILY [facility] Last Admin: 07/31/19 09:20 Dose: 40 mg Documented by: Metoprolol Tartrate (Lopressor) 50 mg PO TID [facility] Last Admin: 07/31/19 20:34 Dose: 50 mg Documented by: Pravastatin Sodium (Pravachol) 40 mg PO [facility] Last Admin: 07/31/19 20:34 Dose: 40 mg Documented by: Physical examination: VITAL SIGNS: 97.8, 123, 20, 103/77, 95% on 2 L GENERAL: Sitting up in a chair, short of breath EYES: [Pupils equal. Conjunctiva rosa m]l. HEENT: [External appearance of nose and ears normal, oral cavity grossly normal]. NECK: [Neck vessels raised; masses not palpable]. HEART: [heart sounds irregular; some edema]. LUNGS:[ Respiratory rate increased, decreased breath sounds]. ABDOMEN: [Soft, nontender, liver spleen not palpable, no masses palpable]. PSYCH: [Alert and oriented x3; mood and affect anxious]l. INVESTIGATIONS, reviewed in the clinical context: Potassium 4.1 bun 35 creatinine 1.76 Pulmonary perfusion scan-low probability for PE Admission testing: white count 9.7 hemoglobin 13.5 potassium 4.4 bun 22 creatinine 1.34 EKG tracing personally reviewed by me-Atrial fibrillation rapid ventricular rate in the 140s Chest x-ray film personally reviewed by me-Pulmonary edema some cardiomegaly 2-D echo-EF 50-55% Assessment: -New onset of atrial fibrillation with rapid ventricular rate, uncontrolled -Acute congestive heart failure exacerbation, with contribution from atrial fibrillation, from diastolic dysfunction EF 50-55% with contribution from atrial fibrillation, uncontrolled symptomatic -diabetes mellitus type 2 on insulin -Essential hypertension Plan: Patient started and IV amiodarone drip today by currently. We will give 1 dose of IV Lasix 40. Care was discussed with patient. Follow electrolytes.
[2019-08-01] MEDS: AMIODARONE 300 MG in DEXTROSE 5% IN WATER 250 ML IV SCH ×2 (01:50)
[2019-08-01 06:26] LABS: Glucose,Whole Blood 127 mg/dL (75-99)
[2019-08-01] MEDS: glipiZIDE 5 MG TAB PO SCH ×2 (06:34→16:54)
[2019-08-01 07:07] LABS: Basophils % (A) 0 %; Eosinophils # (A) 0.1 k/uL (0-0.7); Eosinophils % (A) 2 %; HCT 37.7 % (39.0-53.0); HGB 12.4 gm/dL (13.0-17.5); Lymphocytes # (A) 1.4 k/uL (1.0-4.8); Lymphocytes % (A) 16 %; MCH 30.2 pg (25.0-35.0); MCV 91.7 fL (80.0-100.0); Monocytes # (A) 0.5 k/uL (0-1.0); Monocytes % (A) 5 %; Neutrophils # (A) 6.8 k/uL (1.3-7.7); Neutrophils % (A) 76 %; Platelet Count 275 k/uL (150-450); RBC 4.11 m/uL (4.30-5.90); RDW 13.1 % (11.5-15.5); WBC 8.9 k/uL (3.8-10.6)
[2019-08-01 07:29] LABS: Calcium 8.8 mg/dL (8.4-10.2)
[2019-08-01] MEDS: ASPIRIN 81 MG PO SCH (08:39)
[2019-08-01] MEDS: LISINOPRIL 20 MG TAB PO SCH (08:39)
[2019-08-01] MEDS: cloNIDine HCL 0.1 MG TAB PO SCH ×3 (08:40→21:13)
[2019-08-01] MEDS: METOPROLOL TARTRATE 50 MG TAB PO SCH ×3 (08:40→21:13)
[2019-08-01] MEDS: CHOLECALCIFEROL 1,000 UNIT TAB PO SCH (08:40)
[2019-08-01] MEDS: AMIODARONE 200 MG TAB PO SCH ×2 (11:33→20:07)
[2019-08-01] MEDS: APIXABAN 5 MG TAB PO SCH ×2 (11:33→20:07)
[2019-08-01 12:30] LABS: Glucose,Whole Blood 182 mg/dL (75-99)
--- NOTE | 2019-08-01 12:42 | CDI ---
Documentation Clarification Form Date: 08/01/2019 12:36:28 PM From: Joya DunawayMARGARET, CCDS Admit Date: 07/29/2019 4:26:00 PM Patient Name: Anthony Dey Visit Number: [id number] Discharge Date: ATTENTION: The Clinical Documentation Specialists (CDI) and [facility] Coding Staff appreciate your assistance in clarifying documentation. Please respond to the clarification below the line at the bottom and electronically sign. The CDI & [facility] Coding staff will review the response and follow-up if needed. Please note: Queries are made part of the Legal Health Record. If you have any questions, please contact the author of this message via ITS. Dr. Tristen Wilson: Per the cardiology consult & subsequent progress note: "atrial fibrillation with rapid ventricular response, appears to be of new onset." History/Risk Factors: CHF, Hypertension, DM, Hyperlipidemia, Former smoker. Clinical Indicators: SOB x1 week, slight cough. Diagnosed with Acute on chronic systolic CHF & new onset Atrial Fibrillation. HR: 66 - 137^ - 152 - 163 EKG: R 155 A fib w/RVR Treatment: IV Cardizem drip, ASA, IV Heparin drip, IV Lasix, Nitropaste. In your professional opinion, can you please clarify the type of Atrial Fibrillation, if known? Paroxysmal Persistent Other, please specify Unable to determine (Last Revision: January 2018) New onset MTDD
[2019-08-01] MEDS: FUROSEMIDE 40 MG TAB PO SCH (16:54)
[2019-08-01 16:56] LABS: Glucose,Whole Blood 135 mg/dL (75-99)
[2019-08-01 19:13] LABS: Appearance,Urine Cloudy (Clear); Bacteria,Urine Many /hpf; Bilirubin,Urine Negative (Negative); Blood,Urine Trace (Negative); Color,Urine Yellow; Glucose,Urine (UA) Negative (Negative); Ketones,Urine Negative (Negative); Leukocyte Esterase,Urine Large (Negative); Mucus,Urine Rare /hpf; Nitrite,Urine Positive (Negative); Protein,Urine Negative (Negative); RBC,Urine 10 /hpf (0-5); Specific Gravity,Urine 1.015 (1.001-1.035); Squamous Epithelial Cell,Urine 1 /hpf (0-4); Urobilinogen,Urine <2.0 mg/dL (<2.0); WBC,Urine >182 /hpf (0-5)
[2019-08-01] MEDS: PRAVASTATIN SODIUM 40 MG TAB PO SCH (20:07)
[2019-08-01 20:36] LABS: Glucose,Whole Blood 221 mg/dL (75-99)
[2019-08-01] MEDS: INSULIN DETEMIR (LEVEMIR) 100 UNIT/ML SYR SQ SCH (21:13)
--- NOTE | 2019-08-01 21:50 | CONS ---
CONSULTATION REASON FOR CONSULT: Renal failure. HISTORY OF PRESENT ILLNESS: Patient is a 73-year-old male who was initially admitted on 07/30/2019 with complaints of shortness of breath. He was found to be in atrial fibrillation and is currently maintained on amiodarone drip and was maintained on amiodarone drip which is now changed to p.o. The patient denies any previous history of kidney diseases. His serum creatinine was 1.3 mg/dL on initial admission. It has gone up to 1.7. Blood pressure has been borderline. Patient is maintained on Zestril 40 mg daily. He has had low reading in the 90s systolic yesterday. The patient has not received any IV contrast. No history of use of NSAIDs. Ejection fraction was 50 to 55% on echocardiogram done on 07/30/2019. PAST MEDICAL HISTORY: Hypertension and type 2 diabetes. PAST SURGICAL HISTORY: Back surgery, right knee surgery, left rotator cuff surgery, history of AAA with stent placement, neck surgery. SOCIAL HISTORY: Patient is a former smoker. No history of drug abuse or alcohol abuse. MEDICATIONS: Include aspirin, vitamin D3, fish oil, [place], Lisinopril, insulin, Norvasc, clonidine, Glucotrol, Pravachol. ALLERGIES: None. REVIEW OF SYSTEMS: As per HPI. Other systems negative. EXAMINATION: Patient is currently comfortable. He wants to go home. He denies any complaints. Blood pressure this morning was 157/88, heart rate of about 120 per minute. He is afebrile. Examination of the heart S1, S2. Examination of the lungs, decreased breath sounds at bases. Abdomen is soft, nontender. Examination of lower extremities shows trace edema bilaterally. [employer] WORK[employer] exam grossly intact. LAB: Show sodium 139, potassium 4.0, chloride 107, BUN 35, serum creatinine 1.7, hemoglobin 12.4 g/dL. UA is not available. Chest x-ray on initial admission on July 29 showed pulmonary interstitial edema. ASSESSMENT: 1. Acute kidney injury secondary to hypotension and hypoperfusion in the setting of use of ELI inhibitors. I will decrease the lisinopril to 10 mg daily. We will also check a postvoid scan to make sure patient has no underlying urine retention. A UA will be ordered. An abdominal ultrasound did not show any evidence of hydronephrosis. 2. Volume overload. Continue with p.o. Lasix for now. 3. Atrial fibrillation with rapid ventricular response, now with controlled ventricular response, status post Cardizem drip and amiodarone drip. 4. Rule out chronic kidney disease. Previous creatinine was 1.04 in 2013. However admission creatinine was 1.3 on July 29. Etiology is likely nephrosclerosis. 5. Type 2 diabetes, rule out diabetic nephropathy. PLAN: Decrease lisinopril. Check urinalysis. Wean down clonidine if blood pressure remains low and repeat labs in a.m. Thank you for this consultation. We will continue to follow the patient with you during his hospitalization. MMODL / IJN: [id number] /
[2019-08-01] MEDS ORDERED: METOPROLOL TARTRATE 25 MG TAB PO STA (21:55)
--- NOTE | 2019-08-01 21:56 | P.PN ---
Progress Note - Text Progress Note Date: 08/01/19 Chief Complaint: short of breath Interval history: This is a 73-year-old patient of Dr. Islas.chronic stable medical conditions include diabetes, hypertension, chronic back pain. Patient for 1 week and then progressively getting short of breath. Slight cough. No fever or chills. He does heart racing. Appetite is okay. No sputum production. Patient is found to be in rapid went to tolerate. With A. fib. Was started on Cardizem drip. Also found to be in CHF.problem IV Lasix. Also had some edema. Admitted to the cardiology floor. No prior history of atrial fibrillation and CHF. Admitted with atrial fibrillation with rapid ventricular rate and CHF exac erbation. Today-. Remains in atrial fibrillation. Heart rate is been running in the 100s. Did get a dose of IV Lasix yesterday one time. [place] much better after that. Overall breathing better. Review of systems: Was done for constitutional, cardiovascular, GI, pulmonary. relevant finding as above Active Medications Hydrocodone Bitart/Acetaminophen ([place] 10) 1 each PO Q4HR PRN PRN Reason: Pain Amiodarone HCl (Cordarone) 400 mg PO BID [facility] Last Admin: 08/01/19 20:07 Dose: 400 mg Documented by: Apixaban (Eliquis) 5 mg PO BID [facility] Last Admin: 08/01/19 20:07 Dose: 5 mg Documented by: Aspirin (Aspirin) 81 mg PO DAILY [facility] Last Admin: 08/01/19 08:39 Dose: 81 mg Documented by: Cholecalciferol (Vitamin D3 (25 Mcg = 1000 Iu)) 1,000 unit PO DAILY [facility] Last Admin: 08/01/19 08:40 Dose: 1,000 unit Documented by: Clonidine (Catapres) 0.1 mg PO TID [facility] Last Admin: 08/01/19 21:13 Dose: 0.1 mg Documented by: Furosemide (Lasix) 40 mg PO BID@0900,1600 [facility] Last Admin: 08/01/19 16:54 Dose: 40 mg Documented by: Glipizide (Glucotrol) 5 mg PO AC-BID [facility] Last Admin: 08/01/19 16:54 Dose: 5 mg Documented by: Insulin Detemir (Levemir) 20 unit SQ HS [facility] Last Admin: 08/01/19 21:13 Dose: 20 unit Documented by: Lisinopril (Zestril) 10 mg PO DAILY [facility] Metoprolol Tartrate (Lopressor) 50 mg PO TID [facility] Last Admin: 08/01/19 21:13 Dose: 50 mg Documented by: Pravastatin Sodium (Pravachol) 40 mg PO HS [facility] Last Admin: 08/01/19 20:07 Dose: 40 mg Documented by: Physical examination: VITAL SIGNS: 97.5, 111, 22, 123/90, 94% on 2 L GENERAL: Sitting up in a chair, breathing better EYES: Pupils equal. Conjunctiva normal. HEENT: External appearance of nose and ears normal, oral cavity grossly normal. NECK: Neck vessels raised; masses not palpable. HEART: heart sounds irregular; some edema. LUNGS: Respiratory rate increased, decreased breath sounds. ABDOMEN: Soft, nontender, liver spleen not palpable, no masses palpable. PSYCH: Alert and oriented x3; mood and affect anxiousl. INVESTIGATIONS, reviewed in the clinical context: White count 8.9 hemoglobin 12.4 potassium 4 bun 35 creatinine 1.71 Pulmonary perfusion scan-low probability for PE Admission testing: white count 9.7 hemoglobin 13.5 potassium 4.4 bun 22 creatinine 1.34 EKG tracing personally reviewed by me-Atrial fibrillation rapid ventricular rate in the 140s Chest x-ray film personally reviewed by me-Pulmonary edema some cardiomegaly 2-D echo-EF 50-55% Assessment: -New onset of atrial fibrillation with rapid ventricular rate, heart rate still running in the 1 teens -Acute congestive heart failure exacerbation, with contribution from atrial fibrillation, from diastolic dysfunction EF 50-55% with contribution from atrial fibrillation, clinically improving -diabetes mellitus type 2 on insulin -Essential hypertension -Possible chronic kidney disease stage III from nephrosclerosis -Acute renal failure, prerenal from diuresis Plan: Overall doing better. Heart rate still a bit on the higher side. We'll DC the clonidine. Increase the Lopressor to 75 mg 3 times a day. We will give an extra dose of 25 mg of Lopressor later today.
[2019-08-01] MEDS: METOPROLOL TARTRATE 25 MG TAB PO SCH (23:20)
--- NOTE | 2019-08-01 23:27 | PN ---
PROGRESS NOTE Mr. Dey is a gentleman in atrial fibrillation with rapid ventricular rate. We have used multiple medications to control his rate and finally with amiodarone he has shown some improvement. Rate is in the 100s. He also had a workup including a V/Q scan which was not suggestive of any pulmonary embolism. However, we will continue the intravenous heparin for now and switch him to oral newer novel anticoagulant agents. Rate control is better. I am recommending that we switch to amiodarone orally 400 mg b.i.d. Once IV is over, Eliquis will be 5 mg b.i.d. Aspirin can be discontinued tomorrow and continue oral Lasix instead of IV Lasix and based on clinical course, we will make further recommendations. Echo revealed preserved systolic function overall. Vital signs are stable. JVD is evident. S1-S2 heard normally. Irregularity noted. Heart rate is better. Short systolic murmur is evident. Lungs reveal diminished air entry over both bases. Abdomen and lower exam are unchanged. Plan is to optimize rate control and switch him from IV to oral amiodarone and based on clinical course, make further recommendations. MMODL / IJN: [id number] /
[2019-08-02 06:12] LABS: Glucose,Whole Blood 99 mg/dL (75-99)
[2019-08-02] MEDS: glipiZIDE 5 MG TAB PO SCH ×2 (06:37→16:59)
[2019-08-02 07:28] LABS: Potassium 4.2 mmol/L (3.5-5.1)
[2019-08-02] MEDS: CHOLECALCIFEROL 1,000 UNIT TAB PO SCH (08:18)
[2019-08-02] MEDS: METOPROLOL TARTRATE 25 MG TAB PO SCH ×3 (08:18→21:25)
[2019-08-02] MEDS: AMIODARONE 200 MG TAB PO SCH ×2 (08:18→21:21)
[2019-08-02] MEDS: ASPIRIN 81 MG PO SCH (08:18)
[2019-08-02] MEDS: FUROSEMIDE 40 MG TAB PO SCH ×2 (08:18→16:59)
[2019-08-02] MEDS: LISINOPRIL 10 MG TAB PO SCH (08:18)
[2019-08-02] MEDS: APIXABAN 5 MG TAB PO SCH ×2 (08:18→21:21)
[2019-08-02 11:43] LABS: Glucose,Whole Blood 134 mg/dL (75-99)
--- NOTE | 2019-08-02 15:14 | P.PN ---
Subjective Progress Note Date: 08/02/19 This is a 73-year-old gentleman with history of hypertension, diabetes, hyperlipidemia, prior history of smoking, history of abdominal aortic aneurysm for which he underwent repair by Dr. Ventura several years ago. Presented to the hospital on this occasion with symptoms of worsening shortness of breath for the past one week or so. Chest x-ray on presentation here showed pulmonary interstitial edema likely related to mild heart failure which is new as compared with prior exam. Mild bilateral basilar pulmonary infiltrates. EKG on admission shows atrial fibrillation with a rapid ventricular response. Blood pressure 108/60 with a heart rate of 140, 95% on 2 L of oxygen. White blood c ell count 8.0, hemoglobin 12.7, platelet count 318. D-dimer 1.06, sodium 142, potassium 3.9, BUN 25 and creatinine 1.5, on admission the creatinine was 1.3. Troponins negative 3. BNP level 3030. TSH 1.4. At the time of my examination this morning, patient generally does not look well, he still complaining of feeling some shortness of breath, denies any chest discomfort. Denies any palpitations. According to him, this atrial fibrillation is new. 07/31/2019 Patient seen and examined this morning, continues to feel short of breath, but states that it is somewhat improved from yesterday. Discontinue still have a rapid heart rate in the 1 teens to 120s, blood pressure 115/70, 95% on 2 L of oxygen. BMP from today is pending. We will increase the dose of metoprolol to 50 mg by mouth 3 times a day today. Start the patient on IV amiodarone. VQ scan was negative for pulmonary embolism, echo revealed normal left ventricular systolic function. 08/02/2019 Patient seen and examined today, overall looking significantly better. Blood pressure 120/60 with a heart rate in the 90s today. Patient currently on by mouth amiodarone 400 mg one tablet by mouth twice a day, oral Lasix. Plan for possible discharge home in 24 hours if stable. Objective - Vital Signs Vital signs: Vital Signs Temp 97.5 F L 08/02/19 12:00 Pulse 105 H 08/02/19 12:00 Resp 20 08/02/19 12:00 BP 115/79 08/02/19 12:00 Pulse Ox 94 L 08/02/19 12:00 Intake & Output 08/01/19 08/02/19 08/02/19 18:59 06:59 18:59 Intake Total 720 240 Balance 720 240 Weight 116.1 kg Intake: Oral 720 240 Other: Voiding Method Toilet Toilet Toilet Urinal Urinal Urinal # Voids 1 3 - Exam PHYSICAL EXAMINATION: GENERAL: 73-year-old gentleman in no acute distress at the time of my examination HEENT: Head is atraumatic, normocephalic. Pupils equal, round. Sclera anicteric. Conjunctiva are clear. Mucous membranes of the mouth are moist. Neck is supple. There is no elevated jugular venous pressure.No bruit is heard. HEART EXAMINATION: Heart S1 and S2 irregularly irregular CHEST EXAMINATION: Lungs reveal diminished air entry to bilateral bases with fine rales heard bilaterally. ABDOMEN: Soft, obese, nontender. Bowel sounds are heard. No organomegaly noted. EXTREMITIES: 2+ peripheral pulses with 1+ evidence of peripheral edema and no calf tenderness noted. NEUROLOGIC patient is awake, alert and oriented X3. - Labs CBC & Chem 7: 08/01/19 06:42 08/02/19 06:28 Labs: Abnormal Lab Results - Last 24 Hours (Table) 08/01/19 08/01/19 08/01/19 Range/Units 16:54 18:49 20:34 BUN (9-20) mg/dL Creatinine (0.66-1.25) mg/dL POC Glucose (mg/dL) 135 H 221 H (75-99) mg/dL Urine Blood Trace H (Negative) Ur Leukocyte Esterase Large H (Negative) Urine RBC 10 H (0-5) /hpf Urine WBC >182 H (0-5) /hpf Urine WBC Clumps Many H (None) /hpf Urine Bacteria Many H (None) /hpf Urine Mucus Rare H (None) /hpf 08/02/19 08/02/19 Range/Units 06:28 11:40 BUN 28 H (9-20) mg/dL Creatinine 1.61 H (0.66-1.25) mg/dL POC Glucose (mg/dL) 134 H (75-99) mg/dL Urine Blood (Negative) Ur Leukocyte Esterase (Negative) Urine RBC (0-5) /hpf Urine WBC (0-5) /hpf Urine WBC Clumps (None) /hpf Urine Bacteria (None) /hpf Urine Mucus (None) /hpf Assessment and Plan Plan: Assessment and plan #1 atrial fibrillation with rapid ventricular response, appears to be of new onset #2 congestive cardiac failure, LV function unknown #3 hypertension #4 diabetes #5 hyperlipidemia #6 prior history of nicotine dependence #7 history of abdominal aortic aneurysm with prior repair #8 abnormal d-dimer Plan Echo cardiogram with Doppler study revealed a normal left ventricular systolic function. We will start the patient on oral amiodarone 400 mg one tablet by mouth twice a day today, continue the rest of the patient's current medications. Plan for discharge home in 24 hours if stable. DNP note has been reviewed, I agree with a documented findings and plan of care. Patient was seen and examined.
[2019-08-02 16:58] LABS: Glucose,Whole Blood 196 mg/dL (75-99)
--- NOTE | 2019-08-02 17:28 | PN ---
PROGRESS NOTE The patient is seen for followup for acute kidney injury. His creatinine increased from around 1.3-1.7, mainly associated with hypotension, hypoperfusion in the setting of use of ELI inhibitors. Lisinopril dose was decreased to 10 mg from 40 mg. The patient denies any urinary symptoms. Blood pressure is controlled. It is not elevated and since renal function has improved, I will continue with the same dose. Currently patient denies any urinary symptoms. The UA ordered yesterday showed WBCs more than 182. EXAMINATION: Today blood pressure was 132/78, heart rate 104 per minute, patient is afebrile. Examination of the heart S1, S2. Examination of the lungs, bilateral breath sounds are heard. Abdomen is soft, obese, nontender. Examination of lower extremities, chronic lower extremity skin changes. Trace edema is noted. LABS: Sodium 140, potassium 4.2, chloride 104, BUN 28, serum creatinine 1.6. UA shows more than 182 WBCs, no protein, trace blood was noted. ASSESSMENT: 1. Acute kidney injury associated with some degree of hypoperfusion, hypotension. Continue with lower dose of lisinopril. Repeat labs as outpatient. 2. Atrial fibrillation with RVR now with controlled ventricular response. 3. Possible chronic kidney disease with previous creatinine 1.04 in 2014, most likely secondary to nephrosclerosis. Urinalysis is unremarkable. 4. Asymptomatic pyuria. However, since patient has had low blood pressure, I will check the urine culture. Rule out underlying urinary tract infection. PLAN: Okay to discharge on lower dose of lisinopril. Check urine culture. Follow up as outpatient in 1-2 weeks. MMODL / IJN: [id number] /
[2019-08-02 20:06] LABS: Glucose,Whole Blood 156 mg/dL (75-99)
[2019-08-02] MEDS: PRAVASTATIN SODIUM 40 MG TAB PO SCH (21:21)
[2019-08-02] MEDS: INSULIN DETEMIR (LEVEMIR) 100 UNIT/ML SYR SQ SCH (21:21)
[2019-08-02 21:39] VITALS: RESP 18
--- NOTE | 2019-08-02 22:14 | P.PN ---
Progress Note - Text Progress Note Date: 08/02/19 Interval history: This is a 73-year-old patient of Dr. Islas.chronic stable medical conditions include diabetes, hypertension, chronic back pain. Patient for 1 week and then progressively getting short of breath. Slight cough. No fever or chills. He does heart racing. Appetite is okay. No sputum production. Patient is found to be in rapid went to tolerate. With A. fib. Was started on Cardizem drip. Also found to be in CHF.problem IV Lasix. Also had some edema. Admitted to the cardiology floor. No prior history of atrial fibrillation and CHF. Admitted with atrial fibrillation with rapid ventricular rate and CHF exacerbation. Today-. Sitting up in a chair. Breathing better. Remains in A. fib. Heart rate around the 100s. Started on amiodarone by cardiology. Review of systems: Was done for constitutional, cardiovascular, GI, pulmonary. relevant finding as above Active Medications Hydrocodone Bitart/Acetaminophen ([place] 10) 1 each PO Q4HR PRN PRN Reason: Pain Amiodarone HCl (Cordarone) 400 mg PO BID [facility] Last Admin: 08/02/19 21:21 Dose: 400 mg Documented by: Apixaban (Eliquis) 5 mg PO BID [facility] Last Admin: 08/02/19 21:21 Dose: 5 mg Documented by: Aspirin (Aspirin) 81 mg PO DAILY [facility] Last Admin: 08/02/19 08:18 Dose: 81 mg Documented by: Cholecalciferol (Vitamin D3 (25 Mcg = 1000 Iu)) 1,000 unit PO DAILY [facility] Last Admin: 08/02/19 08:18 Dose: 1,000 unit Documented by: Furosemide (Lasix) 40 mg PO BID@0900,1600 [facility] Last Admin: 08/02/19 16:59 Dose: 40 mg Documented by: Glipizide (Glucotrol) 5 mg PO AC-BID [facility] Last Admin: 08/02/19 16:59 Dose: 5 mg Documented by: Insulin Detemir (Levemir) 20 unit SQ HS [facility] Last Admin: 08/02/19 21:21 Dose: 20 unit Documented by: Lisinopril (Zestril) 10 mg PO DAILY [facility] Last Admin: 08/02/19 08:18 Dose: 10 mg Documented by: Metoprolol Tartrate (Lopressor) 75 mg PO TID [facility] Last Admin: 08/02/19 21:25 Dose: 75 mg Documented by: Pravastatin Sodium (Pravachol) 40 mg PO HS [facility] Last Admin: 08/02/19 21:21 Dose: 40 mg Documented by: Physical examination: VITAL SIGNS: 97.4, 118, 22, 131/84, 92% room air GENERAL: Sitting up in a chair, comfortable EYES: Pupils equal. Conjunctiva normal. HEENT: External appearance of nose and ears normal, oral cavity grossly normal. NECK: Neck vessels raised; masses not palpable. HEART: heart sounds irregular; some edema. LUNGS: Respiratory rate increased, decreased breath sounds. ABDOMEN: Soft, nontender, liver spleen not palpable, no masses palpable. PSYCH: Alert and oriented x3; mood and affect anxiousl. INVESTIGATIONS, reviewed in the clinical context: Potassium 4.2 creatinine 1.61 Admission testing: white count 9.7 hemoglobin 13.5 potassium 4.4 bun 22 creatinine 1.34 EKG tracing personally reviewed by me-Atrial fibrillation rapid ventricular rate in the 140s Chest x-ray film personally reviewed by me-Pulmonary edema some cardiomegaly 2-D echo-EF 50-55% Pulmonary perfusion scan-low probability for PE Assessment: -Persistent atrial fibrillation with rapid ventricular rate, heart rate still running , just above 100 -Acute congestive heart failure exacerbation, with contribution from atrial fibrillation, from diastolic dysfunction EF 50-55% with contribution from atrial fibrillation, clinically improving -diabetes mellitus type 2 on insulin -Essential hypertension -Possible chronic kidney disease stage III from nephrosclerosis -Acute renal failure, prerenal from diuresis Plan: Patient doing overall better. Started on amiodarone.. Discussed with Dr. VANGIE Wilson. Possible discharge in 24 hours.
[2019-08-03 05:05] VITALS: TEMP 98.2
[2019-08-03 06:16] LABS: Glucose,Whole Blood 120 mg/dL (75-99)
[2019-08-03] MEDS: glipiZIDE 5 MG TAB PO SCH (06:23)
[2019-08-03 07:11] LABS: Calcium 8.8 mg/dL (8.4-10.2); Potassium 3.9 mmol/L (3.5-5.1)
[2019-08-03 08:21] VITALS: BP 121/85; PULSE 119
[2019-08-03] MEDS: CHOLECALCIFEROL 1,000 UNIT TAB PO SCH (08:30)
[2019-08-03] MEDS: FUROSEMIDE 40 MG TAB PO SCH (08:30)
[2019-08-03] MEDS: LISINOPRIL 10 MG TAB PO SCH (08:30)
[2019-08-03] MEDS: APIXABAN 5 MG TAB PO SCH (08:30)
[2019-08-03] MEDS: AMIODARONE 200 MG TAB PO SCH (08:30)
[2019-08-03] MEDS: ASPIRIN 81 MG PO SCH (08:30)
[2019-08-03] MEDS: METOPROLOL TARTRATE 25 MG TAB PO SCH (08:30)
[2019-08-03 11:47] LABS: Glucose,Whole Blood 176 mg/dL (75-99)
--- NOTE | 2019-08-03 15:56 | PN ---
PROGRESS NOTE Patient is seen for followup for acute kidney injury. His renal function is fairly stable, creatinine staying at about 1.7 over the over the last 3 to 4 days. Zestril dose was decreased from 40 mg to 10 mg. Patient has had good urine output. Blood pressure is not significantly low; however, he does go down to 115 and 120 mmHg systolic occasionally. On examination, patient is comfortable, awake. He is not in any acute distress. Blood pressure was 132/70 this morning, heart rate 98 per minute. He is afebrile. EXAMINATION OF THE HEART: S1 and S2. EXAMINATION OF LUNGS: Bilateral breath sounds are heard. ABDOMEN: Soft, non-tender, obese. Examination of lower extremities shows trace edema bilaterally. [employer] exam is grossly intact. Labs show sodium 139, potassium 3.9, BUN 28, creatinine 1.7. ASSESSMENT: 1. Acute kidney injury, mostly associated with some degree of hypotension and hypoperfusion, currently nonoliguric. I will check another post-void residual to make sure there is no underlying urine retention. Patient is maintained on lisinopril. I will decrease this further to 5 mg daily. 2. Pyuria, asymptomatic. Urine culture has been ordered, currently pending. 3. Atrial fibrillation with rapid ventricular response, currently with controlled ventricular response and maintained on Eliquis. 4. Hypertension; blood pressure slightly on the lower side. Decrease lisinopril further to 10 mg daily. 5. Chronic kidney disease mostly secondary to nephrosclerosis. Creatinine was 1.0 in 2013. It was 1.3 on initial admission, mostly stage III. PLAN: Decrease lisinopril to 5 mg daily. Continue at the lower dose upon discharge. Repeat labs as outpatient. Follow up as outpatient in about 2 weeks. Dictated at end of tape: Nephrosclerosis. No evidence of proteinuria. Type 2 diabetes. MMODL / IJN: [id number] /
--- NOTE | 2019-08-04 00:44 | PN ---
PROGRESS NOTE Mr. Dey has history of hypertension, hyperlipidemia, COPD and went into new onset atrial fib. Rate is much better controlled, is doing well. Denies chest pain. He is on Eliquis. I am discontinuing aspirin. Rate is 80-90 per minute, irregular, irregular. JVD is evident. S1/S2 heard normally distantly, irregular. Lungs reveal improved air entry. Abdomen and lower extremity exam is unchanged. Plan is to continue current medication, increase activity and plan for discharge. I will see him in the office in 2 weeks. MMODL / IJN: [id number] /
[2019-08-04] MEDS ORDERED: LISINOPRIL 5 MG TAB PO SCH (09:00)
--- NOTE | 2019-08-04 20:40 | P.DS ---
Providers Date of admission: 07/29/19 16:26 Expected date of discharge: 08/04/19 Attending physician: Alberto Madden Consults: 07/29/19 16:27 Consult Physician Urgent Consulting Provider: Cynthia Maldonado Consult Reason/Comments: CHF, A. fib with RVR Do you want consulting provider notified?: Yes 07/31/19 21:51 Consult Physician Routine Consulting Provider: Gail Batres Consult Reason/Comments: Renal failure Do you want consulting provider notified?: Yes Primary care physician: [facility] Course: Discharge diagnoses: This is a 73-year-old patient of Dr. Islas.chronic stable medical conditions include diabetes, hypertension, chronic back pain. Patient for 1 week and then progressively getting short of breath. Slight cough. No fever or chills. He does heart racing. Appetite is okay. No sputum production. Patient is found to be in rapid went to tolerate. With A. fib. Was started on Cardizem drip. Also found to be in CHF.problem IV Lasix. Also had some edema. Admitted to the cardiology floor. No prior history of atrial fibrillation and CHF. Admitted with atrial fibrillation with rapid ventricular rate and CHF exacerbation. Treated with IV Lasix. Rate better controlled. Creatinine did go for 1.34 up to 1.71. Doing better by the time of discharge. Consultation: Dr. VANGIE Wilson from cardiology Dr. Batres from nephrology Physical examination: VITAL SIGNS: 98.2, 119, 18, 1 21 x 85, 96% room air GENERAL: Sitting up in a chair, comfortable EYES: Pupils equal. Conjunctiva normal. HEENT: External appearance of nose and ears normal, oral cavity grossly normal. NECK: Neck vessels raised; masses not palpable. HEART: heart sounds irregular; some edema. LUNGS: Respiratory rate increased, decreased breath sounds. ABDOMEN: Soft, nontender, liver spleen not palpable, no masses palpable. PSYCH: Alert and oriented x3; mood and affect anxiousl. INVESTIGATIONS, reviewed in the clinical context: Bun 28 creatinine 1.71 Admission testing: white count 9.7 hemoglobin 13.5 potassium 4.4 bun 22 creatinine 1.34 EKG tracing personally reviewed by me-Atrial fibrillation rapid ventricular rate in the 140s Chest x-ray film personally reviewed by me-Pulmonary edema some cardiomegaly 2-D echo-EF 50-55% Pulmonary perfusion scan-low probability for PE Discharge diagnosis: -Persistent atrial fibrillation with rapid ventricular rate, -Acute congestive heart failure exacerbation, with contribution from atrial fibrillation, from diastolic dysfunction EF 5055% with contribution from atrial fibrillation, clinically improving -diabetes mellitus type 2 on insulin -Essential hypertension -chronic kidney disease stage III from nephrosclerosis -Acute renal failure, prerenal from diuresis Disposition: Home Patient Condition at Discharge: Stable Plan - Discharge Summary New Discharge Prescriptions: New Amiodarone [Cordarone] 400 mg PO BID #60 tab Apixaban [Eliquis] 5 mg PO BID #60 tab Furosemide [Lasix] 40 mg PO BID@0900,1600 #60 tab Metoprolol Tartrate [Lopressor] 75 mg PO TID #150 tab Lisinopril [Zestril] 10 mg PO DAILY #30 tab Continue glipiZIDE [Glucotrol XL] 10 mg PO DAILY Pravastatin Sodium [Pravachol] 40 mg PO HS Insulin Glargine [Lantus] 20 unit SQ HS HYDROcodone/APAP 10-325MG [Mabel 10-325] 1 tab PO Q4HR PRN PRN Reason: Pain Fish Oil/Dha/Epa [Fish Oil 1,200 mg Fish Oil] 1 cap PO DAILY Cholecalciferol [Vitamin D3 (25 Mcg = 1000 Iu)] 1,000 unit PO DAILY Aspirin EC [Ecotrin Low Dose] 81 mg PO DAILY Discontinued cloNIDine HCL [Catapres] 0.1 mg PO TID amLODIPine [Norvasc] 10 mg PO DAILY Lisinopril 40 mg PO DAILY Discharge Medication List Aspirin EC [Ecotrin Low Dose] 81 mg PO DAILY 07/29/19 [History] Cholecalciferol [Vitamin D3 (25 Mcg = 1000 Iu)] 1,000 unit PO DAILY 07/29/19 [History] Fish Oil/Dha/Epa [Fish Oil 1,200 mg Fish Oil] 1 cap PO DAILY 07/29/19 [History] HYDROcodone/APAP 10-325MG [Mabel 10-325] 1 tab PO Q4HR PRN 07/29/19 [History] Insulin Glargine [Lantus] 20 unit SQ HS 07/29/19 [History] Pravastatin Sodium [Pravachol] 40 mg PO HS 07/29/19 [History] glipiZIDE [Glucotrol XL] 10 mg PO DAILY 07/29/19 [History] Amiodarone [Cordarone] 400 mg PO BID #60 tab 08/02/19 [Rx] Apixaban [Eliquis] 5 mg PO BID #60 tab 08/02/19 [Rx] Furosemide [Lasix] 40 mg PO BID@0900,1600 #60 tab 08/02/19 [Rx] Lisinopril [Zestril] 10 mg PO DAILY #30 tab 08/02/19 [Rx] Metoprolol Tartrate [Lopressor] 75 mg PO TID #150 tab 08/02/19 [Rx] Follow up Appointment(s)/Referral(s): Gail Batres MD [STAFF PHYSICIAN] - 09/07/19 11:20 am (Tuesday) Tristen Wilson MD [STAFF PHYSICIAN] - 08/15/19 8:45 am (Tuesday) Floyd Islas DO [Primary Care Provider] - 1-2 days (Spoke to receptionist secretary. Office will call with appointment time) Patient Instructions/Handouts: A-fib (Atrial Fibrillation) (DC), Pulmonary Edema (DC), Safe Use of Anticoagulants (DC) Discharge Disposition: HOME SELF-CARE
== END 2019-08-03 13:30 | disposition home or self-care (01) | DRG 308 ==
LOC: EC 12:53 → 3SCARD 16:26
PROVIDERS: ADMIT Hospitalist; ATTEND Hospitalist
DX: I48.19 Other persistent atrial fibrillation (principal); I50.31 Acute diastolic (congestive) heart failure; I13.0 Hypertensive heart and chronic kidney disease with heart failure and stage 1 through stage 4 chronic kidney disease, or unspecified chronic kidney disease; N17.9 Acute kidney failure, unspecified; N39.0 Urinary tract infection, site not specified; E11.22 Type 2 diabetes mellitus with diabetic chronic kidney disease; J44.9 Chronic obstructive pulmonary disease, unspecified; I95.9 Hypotension, unspecified; N18.3 Chronic kidney disease, stage 3 (moderate); T50.1X5A Adverse effect of loop [high-ceiling] diuretics, initial encounter; E78.5 Hyperlipidemia, unspecified; G89.29 Other chronic pain; M54.9 Dorsalgia, unspecified; E66.9 Obesity, unspecified; Z68.34 Body mass index [BMI] 34.0-34.9, adult; Z71.3 Dietary counseling and surveillance; Z98.1 Arthrodesis status; Z98.890 Other specified postprocedural states; Z95.828 Presence of other vascular implants and grafts; Z87.891 Personal history of nicotine dependence; Z79.82 Long term (current) use of aspirin; Z79.4 Long term (current) use of insulin; Z79.899 Other long term (current) drug therapy
CPT/HCPCS: 36415; 71046; 76700; 78582; 80048; 80053; 81001; 83880; 84443; 84484; 85025; 85379; 85610; 85730; 87077; 87086; 87186; 93306; 96365; 96375; 96376; 99291

== ENCOUNTER → 2019-08-16 | Outpatient (CLI) | payer MEDICARE | LOC: RADCTMAIN 12:46 | PROVIDERS: ATTEND Internal Medicine Interventional Cardiology | DX: I71.4 Abdominal aortic aneurysm, without rupture (principal) | CPT/HCPCS: 82565; 84520 ==

== ENCOUNTER → 2019-09-06 | Outpatient (CLI) | payer MEDICARE ==
--- NOTE | 2019-09-06 07:56 | US ---
EXAMINATION TYPE: US duplex aorta DATE OF EXAM: 09/06/2019 COMPARISON: US 2019 CLINICAL HISTORY: I71.4 aortic abd aneurysm without rupture. History AAA, repair done in 2006 EXAM MEASUREMENTS: Abdominal Aorta: Proximal: 3.4 x 3.3cm Mid: 3.0 x 3.2cm Distal: 2.4 x 2.4cm Right Iliac: 1.2 x 1.4cm Left Iliac: 1.1 x 1.3cm Proximal and mid portions measure aneurysmal. IMPRESSION: Aneurysmal dilatation of the proximal and mid abdominal aorta measuring up to 3.3 cm prox imally and 3.2 cm in its midportion (just above upper limits of normal).
== END | disposition home or self-care (01) ==
LOC: RADUSWWP 06:50
PROVIDERS: ATTEND Internal Medicine Interventional Cardiology
DX: I71.4 Abdominal aortic aneurysm, without rupture (principal); Z98.890 Other specified postprocedural states
CPT/HCPCS: 93979

== ENCOUNTER → 2019-09-10 | Day surgery (SDC) | payer MEDICARE ==
[~2019-09-10] MED LIST: FUROSEMIDE 20 MG TAB PO STA; LACTATED RINGERS 1,000 ML IV SCH; LIDOCAINE 1% 20 ML VIAL (10MG/ML) FOR IV START INTRADERMA PRN; LIDOCAINE 1% INJ 10MG/ML (20 ML MDV) ONE; PROPOFOL 10 MG/ML 20 ML VIAL IV ONE; SODIUM CHLORIDE 0.9% 1,000 ML IV SCH; SODIUM CHLORIDE 0.9% 500 ML 500 ML IV ONE; amLODIPine 5 MG TAB ONE; amLODIPine 5 MG TAB PO ONE; amLODIPine 5 MG TAB PO STA
[2019-09-10 06:39] LABS: Glucose,Whole Blood 184 mg/dL (75-99)
[2019-09-10 06:45] VITALS: TEMP 98.4
[2019-09-10 07:30] LABS: Calcium 9.3 mg/dL (8.4-10.2)
--- NOTE | 2019-09-10 07:44 | CE ---
CARDIAC ELECTROPHYSIOLOGY REPORT PROCEDURE: Electrical cardioversion. INDICATION: Persistent atrial fibrillation, unresponsive to pharmacological efforts. CLINICAL INFORMATION: Mr. Dey is a 73-year-old gentleman with a history of hypertension, hyperlipidemia, previous abdominal aortic aneurysm repair, and chronic kidney disease. He was recently seen by me in the hospital when he presented with atrial fib, rapid ventricular rate, which was presumed to be a new onset rhythm abnormality. After controlling the rate and ensuring that he was on good anticoagulation with amiodarone on board, he was brought in for electrical cardioversion. The risks, benefits, options were explained. PROCEDURE NOTE: Under the influence of ultra short-acting intravenous anesthetic agent with the attendance of the anesthesiologist, two shocks were delivered in a synchronized fashion to the R-wave with anterior and posterior patches. The first shock was 250 joules and the second was 300 joules. Both these shocks were unsuccessful and patient remained in atrial fib, controlled rate, neurologically intact and hemodynamically stable. This was therefore an unsuccessful electrical cardioversion. The patient will be discharged on current medications and we will pursue rate control and anticoagulation. I explained to the patient and family. He will be discharged later on today. MMODL / IJN: [id number] /
[2019-09-10 07:50] VITALS: RESP 16
[2019-09-10 10:04] VITALS: BP 162/91; PULSE 58
== END ==
LOC: CATHCVL 05:40
PROVIDERS: ATTEND Internal Medicine Interventional Cardiology
DX: I48.19 Other persistent atrial fibrillation (principal); E78.2 Mixed hyperlipidemia; I12.9 Hypertensive chronic kidney disease with stage 1 through stage 4 chronic kidney disease, or unspecified chronic kidney disease; E11.22 Type 2 diabetes mellitus with diabetic chronic kidney disease; N18.9 Chronic kidney disease, unspecified; Z87.891 Personal history of nicotine dependence; Z86.79 Personal history of other diseases of the circulatory system; Z98.890 Other specified postprocedural states; Z79.4 Long term (current) use of insulin; Z79.01 Long term (current) use of anticoagulants; Z79.899 Other long term (current) drug therapy
CPT/HCPCS: 92960; 80048; J2001; J2704

== ENCOUNTER → 2019-11-30 | Outpatient (CLI) | payer MEDICARE ==
--- NOTE | 2019-11-30 15:41 | CT ---
EXAMINATION TYPE: CT chest wo con DATE OF EXAM: 11/30/2019 COMPARISON: None HISTORY: SOB CT DLP: 636.[address] of the chest was performed with lung and mediastinal window settings submitted. The la ck of contrast limits evaluation of the vascular, mediastinal and parenchymal structures including th e upper abdomen. LUNGS: Chronic elevation right hemidiaphragm. Right basilar parenchymal scarring. Pleural based pulmo nary nodule right lower lobe medially measuring 11 mm. MEDIASTINUM/JO ANN: Thoracic aorta is of normal caliber with limited evaluation given lack of contrast. The heart is not enlarged. No evidence for mediastinal mass. No lymph nodes greater than 1cm. UPPER ABDOMEN: No significant abnormality is seen. OTHER: No significant other abnormality. IMPRESSION: 1. Nonspecific solitary pulmonary nodule right lower lobe medially. Follow-up in 4-6 months is advis ed. No additional nodules seen.
== END | disposition home or self-care (01) ==
LOC: RADCTMAIN 14:51
PROVIDERS: ATTEND Internal Medicine Sleep Medicine
DX: R91.1 Solitary pulmonary nodule (principal)
CPT/HCPCS: 71250

== ENCOUNTER → 2020-01-09 | Outpatient (CLI) | payer MEDICARE | END | disposition home or self-care (01) | LOC: RADCTMAIN 13:48 | PROVIDERS: ATTEND Otolaryngology | DX: J38.3 Other diseases of vocal cords (principal); Z88.6 Allergy status to analgesic agent | CPT/HCPCS: 82565; 84520 ==

== ENCOUNTER → 2020-06-09 | Outpatient (CLI) | payer MEDICARE ==
--- NOTE | 2020-06-09 09:37 | FL ---
EXAMINATION TYPE: FL sniff test without CXR DATE OF EXAM: 06/09/2020 COMPARISON: CT chest 06/09/2020 HISTORY: Worsening shortness of breath for 8 to 9 months. TECHNIQUE: Fluoroscopy sniff test. FINDINGS: Fluoroscopic sniff test, performed by Dr. Latonia Reina. There is diaphragm motion ramin aterally with deep inspiration and expiration. No evidence of diaphragm paralysis. A total of 42 seconds of fluoroscopic time was utilized during the procedure and 8 spot images was ac quired. IMPRESSION: Normal diaphragm motion bilaterally.
--- NOTE | 2020-06-09 11:27 | CT ---
EXAMINATION TYPE: CT chest wo con DATE OF EXAM: 06/09/2020 COMPARISON: CT chest 11/30/2019 HISTORY: follow up nodule CT DLP: 623.4 mGycm Automated exposure control for dose reduction was used. CONTRAST: CT scan of the chest is performed without intravenous contrast. Coronal and sagittal reformatted imag es obtained. FINDINGS: LUNGS: Lungs are grossly clear. There is similar aeration of the bilateral lungs. Minimal bibasilar a telectasis. Right lower lobe smooth, round, posteromedial pulmonary nodule measures 1.3 x 0.9 x 1.1 c m (4:35), not significant changed from 11/30/2019 comparison when it measured 1.2 x 0.9 x 1.1 cm. No n ew parenchymal mass or nodule identified. No pleural effusion. No pneumothorax. The tracheobronchial tree is patent. There is mild narrowing of the coronal plane of the intrathoracic trachea, however wi thout meeting criteria for saber-sheath trachea. Mild bronchiectasis of the bilateral lower lobes. MEDIASTINUM/SOFT TISSUES: No axillary, hilar, or mediastinal lymphadenopathy greater than 1 cm. Cardi ac size is within upper limits of normal. Calcified coronary disease. No pericardial effusion. No tho racic aortic aneurysm. Ectatic course of the descending thoracic aorta. There is dilatation of the ma in pulmonary arterial trunk up to 4.1 cm. UPPER ABDOMEN: No adrenal nodule. OSSEOUS: Degenerative changes of the visualized spine and shoulders. Decreased osseous mineralization . IMPRESSION: 1. Right lower lobe 1.3 cm solitary pulmonary nodule unchanged in size versus 11/30/2019. Per Fleischn er 2017 guidelines, PET/CT is recommended for evaluation of this solitary pulmonary nodule. 2. Main pulmonary arterial trunk dilatation up to 4.1 cm. Findings likely represent pulmonary arteria l hypertension. 3. Minimal lower lobe bronchiectasis and mildly increased AP diameter of the intrathoracic trachea. F indings may represent emphysematous change. Correlation with pulmonary function testing is recommende adina
== END | disposition home or self-care (01) ==
LOC: RADCTMAIN 08:06
PROVIDERS: ATTEND Internal Medicine Critical Care Medicine
DX: R06.09 Other forms of dyspnea (principal); J47.9 Bronchiectasis, uncomplicated; R91.8 Other nonspecific abnormal finding of lung field
CPT/HCPCS: 71250; 76000

== ENCOUNTER → 2020-06-19 | Outpatient (CLI) | payer MEDICARE | END | disposition home or self-care (01) | LOC: CPPFTMAIN 11:34 | PROVIDERS: ATTEND Internal Medicine Critical Care Medicine | DX: J44.9 Chronic obstructive pulmonary disease, unspecified (principal); R94.2 Abnormal results of pulmonary function studies | CPT/HCPCS: 94060; 94726; 94729 ==

== ENCOUNTER → 2020-06-20 | Outpatient (CLI) | payer MEDICARE ==
[2020-06-20 10:12] LABS: ABG Base Excess -1.2 mmol/L; ABG HCO3 23 mmol/L (21-25); ABG Oxygen Saturation 93.2 % (94-97); ABG PCO2 37 mmHg (35-45); ABG PH 7.41 (7.35-7.45); ABG PO2 66 mmHg (83-108); ABG TCO2 25 mmol/L (19-24); Allen Test Performed? Yes
== END | disposition home or self-care (01) ==
LOC: LABWHC1 09:41
PROVIDERS: ATTEND Internal Medicine Critical Care Medicine
DX: R06.00 Dyspnea, unspecified (principal)
CPT/HCPCS: 36600; 82805

== ENCOUNTER 2022-04-30 09:13 | Day surgery (SDC) | payer MEDICARE, OTHER ==
--- NOTE | 2022-04-29 18:41 | HP ---
HISTORY AND PHYSICAL CHIEF COMPLAINT: Lesion of the tip of the nose; suspect basal cell carcinoma. HISTORY OF PRESENT ILLNESS: This patient is a 76-year-old male who was recently seen in my office for evaluation of a lesion which was located on the tip of his nose. The patient states that it has been there for anywhere from 2 to 3 months. It is not painful. He feels it has gotten slightly larger. Occasionally the area becomes crusty and when the crust flakes off it tends to bleed. He does not have a history of previous malignant skin lesions. At the time that he was seen in my office, clinical examination revealed that he had approximately a 4 to 5 mm well-circumscribed maculopapular crusty lesion located on the dome of the nose. No other associated skin lesions were seen. It was recommended that the patient undergo excision of this lesion under general anesthesia. Past medical history reveals that he has NO KNOWN ALLERGIES TO MEDICATIONS. His current medications include Jardiance, Eliquis, repaglinide, [place], Lantus insulin, sertraline, atorvastatin, bumetanide. REVIEW OF SYSTEMS: The cardiovascular system is positive for hypertension, ASHD and atrial fibrillation. RESPIRATORY: Negative. Metabolic/endocrine system is positive for hypercholesterolemia and type 1 diabetes mellitus. Musculoskeletal is positive for osteoarthritis. The remainder of the review of systems is essentially unremarkable. Previous surgeries include triple bypass, surgery for an abdominal aortic aneurysm, bilateral cataract surgery, back surgery, rotator cuff surgery and cervical fusion. PHYSICAL EXAMINATION: This patient is a 76-year-old male who was alert and cooperative. HEENT examination: Patient is normocephalic. Tympanic membranes are normal. Middle ear spaces are free of any fluid or infection. Pupils equal, round, reactive to light and accommodation. Extraocular movements are within normal limits. Intranasal examination reveals moderate to severe septal deviation, compensatory hypertrophy of inferior turbinates. Examination of the dome of the nose reveals a 4 to 6 mm maculopapular, crusty, well-circumscribed, nontender lesion. Cranial nerves 2 through 12 and the remainder of the head and neck exam all within normal limits. Chest/cardiovascular: Both lung myers are clear to percussion and auscultation. The patient is in regular sinus rhythm. S1 and S2 are present without evidence of any murmurs, S3s or S4s. Peripheral pulses are bilaterally symmetrical. Abdomen: There is no evidence of any masses, megaly or tenderness. Abdomen is soft. Skin is unremarkable. Musculoskeletal and neurological are all within normal limits. Rectal exam is deferred at this time because the patient has this done on a regular basis at his family physician's office. The remainder of the physical exam is essentially unremarkable. IMPRESSION: Lesion of the dome of the nose; suspect basal cell carcinoma. PLAN: The patient is scheduled to undergo excision of lesion of the dome of the nose with possible postauricular skin graft to the surgical site if needed. Attention RNs in the pre-surgical area: I have ordered for this patient to receive 2 grams of Ancef intravenously once an IV has been established. If the pharmacy department sends a different pre-surgical prophylactic antibiotic, that order should be cancelled and the medication should be returned to the pharmacy department. Please make sure that the patient's account is credited appropriately. In addition to this, I have requested that the patient received 1000 mg of Ofirmev to be given once an intravenous line has been established. I have discussed the risks, benefits and alternative therapies for the above-mentioned procedure and for both sedation/analgesia as well as necessary blood product administration, if indicated, as they pertain to this patient. The patient has indicated his or her understanding and acceptance of the risks and procedures discussed. MMODL / IJN: [id number] /
[~2022-04-30 09:13] MED LIST changes: +DEXAMETHASONE SOD PHOSPHATE 4 MG/ML 1 ML VIAL IV ONE; -FUROSEMIDE 20 MG TAB PO STA; +HYDROmorphone 0.5 MG/0.5 ML SYRINGE IVP PRN; -LIDOCAINE 1% 20 ML VIAL (10MG/ML) FOR IV START INTRADERMA PRN; -LIDOCAINE 1% INJ 10MG/ML (20 ML MDV) ONE; +MIDAZOLAM 2 MG/2 ML VIAL IV PRN; +ONDANSETRON 4 MG/2 ML VIAL IVP ONE; -PROPOFOL 10 MG/ML 20 ML VIAL IV ONE; +Pre Op ABX Message 1 EACH MISC MISCELLANE ONE; -SODIUM CHLORIDE 0.9% 1,000 ML IV SCH; -SODIUM CHLORIDE 0.9% 500 ML 500 ML IV ONE; -amLODIPine 5 MG TAB ONE; -amLODIPine 5 MG TAB PO ONE; -amLODIPine 5 MG TAB PO STA
[2022-04-30 10:19] LABS: Glucose,Whole Blood 147 mg/dL (70-110)
[2022-04-30 10:32] LABS: Calcium 8.7 mg/dL (8.4-10.2)
[2022-04-30] MEDS ORDERED: ACETAMINOPHEN IV (For NPO) 1,000 MG in EMPTY BAG 1 BAG IVPB ONE (10:40)
[2022-04-30] MEDS ORDERED: PROPOFOL 10 MG/ML 20 ML VIAL IV ONE (11:08)
[2022-04-30] MEDS ORDERED: LIDOCAINE 2% INJ 20 MG/ML (2 ML VIAL) ONE (11:08)
[2022-04-30] MEDS ORDERED: SUCCINYLCHOLINE CHLORIDE 100 MG/5 ML SYR IV ONE (11:08)
[2022-04-30] MEDS ORDERED: ePHEDrine 50 MG/ML 1 ML VIAL ONE (11:08)
[2022-04-30] MEDS ORDERED: fentaNYL (PF) 50 MCG/ML 2 ML AMP ONE (11:08)
[2022-04-30] MEDS ORDERED: PHENYLEPHRINE-0.9% NACL SYG 1,000 MCG/10 ML SYRINGE ONE (11:08)
[2022-04-30] MEDS ORDERED: BUPIVACAIN-EPI 0.25%-1:200,000 30 ML VIAL SQ ONE ×3 (11:29→11:48)
[2022-04-30 12:47] VITALS: TEMP 97.8
[2022-04-30 12:58] VITALS: RESP 16
[2022-04-30 14:05] VITALS: BP 158/92; PULSE 85
--- NOTE | 2022-05-04 19:58 | OP ---
OPERATIVE REPORT DATE OF SURGERY: 04/30/2022 PREOPERATIVE DIAGNOSIS: A 4 to 6 mm lesion on the dorsum of the nose. POSTOPERATIVE DIAGNOSIS: A 4 to 6 mm lesion on the dorsum of the nose; final pathology pending. ANESTHESIA: General. OPERATIVE PROCEDURE: Complete excision with margins of the 4 to 6 mm lesion of the dorsum of the nose with complex 3-layer closure. OPERATING SURGEON: Dr. Metzger. COMPLICATIONS: None. ESTIMATED BLOOD LOSS: Less than 4 to 6 mL. OPERATIVE PROCEDURE DESCRIPTION: The patient was placed on the operating table in supine position, and after uneventful induction and endotracheal intubation, satisfactory general anesthesia was obtained. Next, the patient's face was prepped and draped in the usual fashion. The lesion which was located on the dorsum of the nose was approximately 4 to 6 cm in dimension. It was located and evaluated. Initially the area was infiltrated with approximately 1 to 1.5 mL of 0.25% Marcaine with epinephrine 1:100,000. Next, the proposed incision was outlined in a vertical-elliptical fashion. Next, using a #15 scalpel, incision was made following the outline of the Codman marking pen. The incision was made through skin, through subcutaneous tissue, down to the level of the overlying cartilage structure. This was a deep excision, and care was taken to try and provide margins of this lesion in the event that it is a malignancy. The dissection was carried out sharply with a pair of sharp, curved, Alfie scissors. The lesion was excised completely and was labeled as follows: Black suture marked the superior aspect; purple suture marked the inferior aspect; white suture marked the right or lateral aspect of the lesion; and a blue suture was used to demarcate the left or lateral aspect of the specimen. The specimen sent to Pathology for permanent sectioning. The actual lesion was approximately 4 to 6 mm in dimension. Hemostasis was obtained using electrocautery. Next the wound defect was closed in a complex manner because it was quite deep. The deepest tissues of the incision were approximated using 4-0 Vicryl in an interrupted buried fashion. The subcutaneous fatty tissues were then approximated using 4-0 Vicryl in an interrupted buried fashion. A few subcutaneous sutures were used to approximate the skin in interrupted buried fashion. Finally the skin was carefully approximated using a combination of 4-0 rapid absorbing Vicryl suture in an interrupted buried fashion and 4-0 chromic sutures in an interrupted buried fashion. Finally a coating of Dermabond tissue glue was applied. At this point, the procedure was terminated. Estimated blood loss was between 4 and 6 mL. There were no intraoperative complications. Final pathology is pending. Again, the lesion itself was approximately 4 to 6 mm in dimension. The patient tolerated the procedure well and was returned to the recovery room in satisfactory condition. MMMARTÍNEZ / SUJITN: [id number] /
== END 2022-04-30 14:23 | disposition home or self-care (01) ==
LOC: OR 09:13
PROVIDERS: ATTEND Otolaryngology
DX: C44.311 Basal cell carcinoma of skin of nose (principal); I25.10 Atherosclerotic heart disease of native coronary artery without angina pectoris; I10 Essential (primary) hypertension; I48.91 Unspecified atrial fibrillation; E78.00 Pure hypercholesterolemia, unspecified; E10.9 Type 1 diabetes mellitus without complications; M19.90 Unspecified osteoarthritis, unspecified site; Z95.1 Presence of aortocoronary bypass graft; Z98.42 Cataract extraction status, left eye; Z98.41 Cataract extraction status, right eye; Z98.1 Arthrodesis status; Z98.890 Other specified postprocedural states; I50.9 Heart failure, unspecified; E78.5 Hyperlipidemia, unspecified; Z97.2 Presence of dental prosthetic device (complete) (partial); Z79.01 Long term (current) use of anticoagulants; Z79.84 Long term (current) use of oral hypoglycemic drugs; Z79.4 Long term (current) use of insulin; Z79.899 Other long term (current) drug therapy
CPT/HCPCS: 88305; 80048; 11642; J1100; J0690; J3010; J0131; J2370; J0330; J2704; J2001

== ENCOUNTER → 2023-08-30 | Outpatient (CLI) | payer MEDICARE ==
--- NOTE | 2023-08-31 08:51 | CT ---
EXAMINATION TYPE: CT chest wo con DATE OF EXAM: 08/30/2023 COMPARISON: 06/09/2020, 11/30/2010 HISTORY: Afib and CHF x [address] years[address] on [address] DLP: 586.0 mGycm. Automated Exposure Control for Dose Reduction was Utilized. TECHNIQUE: CT scan of the thorax is performed without IV contrast. FINDINGS: LUNGS: The lungs are grossly clear, there is no concerning parenchymal consolidation identified. Th ere is no pleural effusion or pneumothorax seen. The tracheobronchial tree is patent. Stable 1.3 x 0 .9 cm subpleural right lower lobe pulmonary nodule. Subsegmental basilar consolidation atelectasis th ere is a calcified nodule seen in the left axial image 13. Findings compatible with benign granuloma. Mild emphysematous changes. MEDIASTINUM: Lack of IV contrast is noted to limit evaluation for mediastinal and especially hilar ad enopathy. There are no definitive greater than 1 cm hilar or mediastinal lymph nodes. The heart is en larged and there is a tiny pericardial effusion. Atherosclerotic change aorta. Coronary artery calcif ications are seen calcification aortic valve. Ascending aorta measures 4 cm compatible with mild aneu rysmal dilation which is stable. Main pulmonary arterial trunk measures 4.1 cm which appears dilated. OTHER: Hypertrophic degenerative changes in the spine.. IMPRESSION: 1. Stable pulmonary nodules unchanged in size. 2. Stable mild aneurysmal dilation ascending aorta measuring 4 cm. 3. Correlate pulmonary arterial
== END | disposition home or self-care (01) ==
LOC: RADCTMAIN 17:13
PROVIDERS: ATTEND Internal Medicine
DX: I71.21 Aneurysm of the ascending aorta, without rupture (principal); I48.91 Unspecified atrial fibrillation; I50.9 Heart failure, unspecified; R91.8 Other nonspecific abnormal finding of lung field
CPT/HCPCS: 71250

== ENCOUNTER 2024-08-30 10:58 | Emergency (ER) | payer MEDICARE ==
[2024-08-30 11:13] LABS: Glucose,Whole Blood 99 mg/dL (70-110)
--- NOTE | 2024-08-30 11:14 | ED ---
Recheck HPI - General Chief Complaint: Recheck/Abnormal Lab/Rx Stated Complaint: Diabetic issue Time Seen by Provider: 08/30/24 11:03 Source: patient, RN notes reviewed Mode of arrival: ambulatory Limitations: no limitations - History of Present Illness Initial Comments: This is a 78-year-old male who presents to the emergency department for hypoglycemia. Patient got up this morning and checked his blood sugar. States that it was around 94. He did not eat breakfast but proceeded to give himself insulin. He gave himself 44 units of the long-acting Lantus, which is what he gives himself daily. His daughter then found him sluggish and difficult to arouse. When EMS arrived they found his sugar to be 39. They gave him an amp of dextrose and sugar corrected to the 200s. Afterwards patient started to improve and he is currently A&O x 4. He denies any complaints. MD Complaint: abnormal lab - Related Data Home Medications Medication Instructions Recorded Confirmed Cholecalciferol [Vitamin D3 (25 1,000 unit PO DAILY 07/29/19 04/29/22 Mcg = 1000 Iu)] HYDROcodone/APAP 10-325MG [[place] 1 tab PO Q4HR PRN 07/29/19 04/29/22 10-325] Insulin Glargine [Lantus Vial] 38 unit SQ DAILY 07/29/19 04/30/22 Albuterol Inhaler [Ventolin Hfa 2 puff INHALATION Q4-6H PRN 04/29/22 04/30/22 Inhaler] Empagliflozin [Jardiance] 10 mg PO DAILY 04/29/22 04/30/22 Repaglinide [Prandin] 1 mg PO AC-TID 04/29/22 04/29/22 Atorvastatin [Lipitor] 40 mg PO HS 04/30/22 04/30/22 Budesonide-Formot 160-4.5 Mcg 2 puff INHALATION BID 04/30/22 04/30/22 [Symbicort 160-4.5 Mcg Inhaler] Bumetanide 1 mg PO DAILY 04/30/22 04/30/22 Losartan [Cozaar] 25 mg PO DAILY 04/30/22 04/30/22 Metoprolol Succinate (ER) [Toprol 50 mg PO DAILY 04/30/22 04/30/22 Xl] Sertraline [Zoloft] 50 mg PO DAILY 04/30/22 04/30/22 Sildenafil [Revatio] 20 mg PO TID 04/30/22 04/30/22 Tiotropium 2.5 Mcg/Puff [Spiriva 2 puff INHALATION DAILY 04/30/22 04/30/22 Respimat 2.5 Mcg] Previous Rx's Medication Instructions Recorded Apixaban [Eliquis] 5 mg PO BID #60 tab 08/02/19 Cephalexin [Keflex] 500 mg PO BID 1 Days #14 cap 04/29/22 Levofloxacin [Levaquin] 750 mg PO DAILY 5 Days #5 tab 08/30/24 Allergies Allergy/AdvReac Type Severity Reaction Status Date / Time No Known Allergies Allergy Verified 08/30/24 11:16 Review of Systems ROS Statement: Those systems with pertinent positive or pertinent negative responses have been documented in the HPI. ROS Other: All systems not noted in ROS Statement are negative. Past Medical History Past Medical History: Atrial Fibrillation, Cancer, Heart Failure, COPD, Diabetes Mellitus, Hyperlipidemia, Hypertension, Osteoarthritis (OA), Renal Disease Additional Past Medical History / Comment(s): kidney function is low. angiogram without major blockages 01/2021 CHF, Arthritis generalized, basil cell carcinoma History of Any Multi-Drug Resistant Organisms: None Reported Past Surgical History: Back Surgery, Orthopedic Surgery Additional Past Surgical History / Comment(s): (R) knee, (R) (L) rotator cuff, AAA stent, neck fusion. rt cheek cyst removed Werthers tumor, catartact removal bilateral eyes as well as laser treatment for cloudiness. Past Anesthesia/Blood Transfusion Reactions: No Reported Reaction Smoking Status: Former smoker - Past Family History Mother Family Medical History: Cancer Additional Family Medical History / Comment(s): bladder Father Family Medical History: Cancer Additional Family Medical History / Comment(s): leukemia General Exam Limitations: no limitations General appearance: alert, in no apparent distress Head exam: Present: atraumatic, normocephalic, normal inspection Eye exam: Present: normal appearance, PERRL, EOMI. Absent: scleral icterus, conjunctival injection, periorbital swelling Respiratory exam: Present: normal lung sounds bilaterally. Absent: respiratory distress, wheezes, rales, rhonchi, stridor Cardiovascular Exam: Present: regular rate, normal rhythm, normal heart sounds. Absent: systolic murmur, diastolic murmur, rubs, gallop, clicks Neurological exam: Present: alert, oriented X3, CN II-XII intact Psychiatric exam: Present: normal affect, normal mood Skin exam: Present: warm, dry, intact, normal color. Absent: rash Course Vital Signs 08/30/24 08/30/24 08/30/24 11:01 12:00 14:02 Temperature 96.9 F L 97.3 F L Pulse Rate 93 78 67 Respiratory 16 20 24 Rate Blood Pressure 111/79 107/83 122/78 O2 Sat by Pulse 95 93 L 95 Oximetry Medical Decision Making - Medical Decision Making This is a 78 year old male who presents to the emergency department for hypoglycemia. Was pt. sent in by a medical professional or institution? @ -No Did you speak to anyone other than the patient for history? @ -EMS provided the majority of the history. Did you review nursing and triage notes? @ -Yes, and I agree, it is accurate with regards to the patient's symptoms. Were old charts reviewed? @ -No Differential Diagnosis? @ -Medication error, illness, dietary intake, this is not meant to be an all- inclusive list. EKG interpreted by me (3pts min.)? @ -EKG interpreted by me demonstrating the following: Atrial fibrillation. Ventricular rate 87 bpm, QRS duration 98 ms, QTc 434 ms. X-rays interpreted by me (1pt min.)? @ -Chest x-ray obtained. My interpretation identifies right lower lobe opacities. CT interpreted by me (1pt min.)? @ -Not obtained U/S interpreted by me (1pt. min.)? @ -Not obtained What testing was considered but not performed? (CT, X-rays, U/S, labs)? Why? @ -None What meds were considered but not given? Why? @ -None Did you discuss the management of the patient with other professionals? @ -No Did you reconcile home meds? @ -No Was smoking cessation discussed for >3mins.? @ -No Was critical care preformed (if so, how long)? @ -No Were there social determinants of health that impacted care today? How? (Homelessness, low income, unemployed, alcoholism, drug addiction, transportation, low edu. Level, literacy, decrease access to med. care, residential, rehab)? @ -No Was there de-escalation of care discussed even if they declined? (Discuss DNR or withdrawal of care, Hospice)? @ -No What co-morbidities impacted this encounter? (DM, HTN, Smoking, COPD, CAD, Cancer, CVA, Hep., AIDS, mental health diagnosis, sleep apnea, morbid obesity)? @ -DM Was patient admitted / discharged? @ -Discharged. Lab work demonstrates hypokalemia with a potassium of 3.1. He also has signs of dehydration. Blood sugar 72. He was given IV fluids for the dehydration and 40 mEq of K-Dur. Chest x-ray demonstrates right basilar airspace opacities concerning for pneumonia. Patient's blood sugar was rechecked several times. He was given a meal tray and after a few hours his blood sugar was 184. He also continued to be asymptomatic. Prescription for Levaquin provided for pneumonia. Patient discharged home in stable condition and will follow-up with his PCP. Case discussed with ED attending Dr. Betancur. Return precautions reviewed in depth, the patient is instructed to return to the emergency department with any new, worsening, or concerning symptoms. Patient verbalized understanding. Undiagnosed new problem with uncertain prognosis? @ -None Drug Therapy requiring intensive monitoring for toxicity (Heparin, Nitro, Insulin, Cardizem)? @ -None Were any procedures done? @ -None Diagnosis/symptom? @ -Pneumonia, hypoglycemia Acute, or Chronic, or Acute on Chronic? @ -Acute Uncomplicated (without systemic symptoms) or Complicated (systemic symptoms)? @ -Uncomplicated Side effects of treatment? @ -None Exacerbation, Progression, or Severe Exacerbation] @ -Not applicable Poses a threat to life or bodily function? @ -No - Lab Data Result diagrams: 08/30/24 11:28 08/30/24 11:28 Lab Results 08/30/24 08/30/24 08/30/24 Range/Units 11:00 11:28 11:28 WBC 10.6 (3.8-10.6) k/uL RBC 4.07 L (4.30-5.90) m/uL Hgb 12.4 L (13.0-17.5) gm/dL Hct 37.6 L (39.0-53.0) % MCV 92.3 (80.0-100.0) fL MCH 30.4 (25.0-35.0) pg MCHC 32.9 (31.0-37.0) g/dL RDW 13.8 (11.5-15.5) % Plt Count 202 (150-450) k/uL MPV 7.7 Neutrophils % 75 % Lymphocytes % 16 % Monocytes % 6 % Eosinophils % 1 % Basophils % 0 % Neutrophils # 7.9 H (1.3-7.7) k/uL Lymphocytes # 1.7 (1.0-4.8) k/uL Monocytes # 0.6 (0-1.0) k/uL Eosinophils # 0.1 (0-0.7) k/uL Basophils # 0.0 (0-0.2) k/uL Sodium 141 (137-145) mmol/L Potassium 3.1 L (3.5-5.1) mmol/L Chloride 114 H (98-107) mmol/L Carbon Dioxide 23 (22-30) mmol/L Anion Gap 4 mmol/L BUN 29 H (9-20) mg/dL Creatinine 1.57 H (0.66-1.25) mg/dL Est GFR (CKD-EPI)AfAm 48 (>60 ml/min/1.73 sqM) Est GFR (CKD-EPI)NonAf 41 (>60 ml/min/1.73 sqM) Glucose 72 L (74-99) mg/dL POC Glucose (mg/dL) 99 (70-110) mg/dL POC Glu Bias Cutter ID Raeann Herr Calcium 8.3 L (8.4-10.2) mg/dL Total Bilirubin 0.7 (0.2-1.3) mg/dL AST 25 (17-59) U/L ALT 18 (4-49) U/L Alkaline Phosphatase 87 (38-126) U/L Total Protein 5.6 L (6.3-8.2) g/dL Albumin 3.2 L (3.5-5.0) g/dL 08/30/24 08/30/24 Range/Units 12:02 13:22 WBC (3.8-10.6) k/uL RBC (4.30-5.90) m/uL Hgb (13.0-17.5) gm/dL Hct (39.0-53.0) % MCV (80.0-100.0) fL MCH (25.0-35.0) pg MCHC (31.0-37.0) g/dL RDW (11.5-15.5) % Plt Count (150-450) k/uL MPV Neutrophils % % Lymphocytes % % Monocytes % % Eosinophils % % Basophils % % Neutrophils # (1.3-7.7) k/uL Lymphocytes # (1.0-4.8) k/uL Monocytes # (0-1.0) k/uL Eosinophils # (0-0.7) k/uL Basophils # (0-0.2) k/uL Sodium (137-145) mmol/L Potassium (3.5-5.1) mmol/L Chloride (98-107) mmol/L Carbon Dioxide (22-30) mmol/L Anion Gap mmol/L BUN (9-20) mg/dL Creatinine (0.66-1.25) mg/dL Est GFR (CKD-EPI)AfAm (>60 ml/min/1.73 sqM) Est GFR (CKD-EPI)NonAf (>60 ml/min/1.73 sqM) Glucose (74-99) mg/dL POC Glucose (mg/dL) 85 184 H (70-110) mg/dL POC Glu Bias Cutter ID Wagester Swetha Wagester Swetha Calcium (8.4-10.2) mg/dL Total Bilirubin (0.2-1.3) mg/dL AST (17-59) U/L ALT (4-49) U/L Alkaline Phosphatase (38-126) U/L Total Protein (6.3-8.2) g/dL Albumin (3.5-5.0) g/dL - Radiology Data Radiology results: report reviewed, image reviewed Disposition Clinical Impression: Pneumonia, Hypoglycemia Disposition: HOME SELF-CARE Instructions (If sedation given, give patient instructions): Hypoglycemia in a Person with Diabetes (ED), Hypoglycemia in a Person with Diabetes (DC), Pneumonia (ED) Additional Instructions: Return to the emergency department with any new, worsening, or concerning sy mptoms. Take the antibiotic as prescribed for 5 days. Follow up with your primary care provider in 1-2 days. Prescriptions: Levofloxacin [Levaquin] 750 mg PO DAILY 5 Days #5 tab Is patient prescribed a controlled substance at d/c from ED?: No Referrals: Floyd Islas DO [Primary Care Provider] - 1-2 days Time of Disposition: 13:50
[2024-08-30 11:39] LABS: Basophils % (A) 0 %; Eosinophils # (A) 0.1 k/uL (0-0.7); Eosinophils % (A) 1 %; HCT 37.6 % (39.0-53.0); HGB 12.4 gm/dL (13.0-17.5); Lymphocytes # (A) 1.7 k/uL (1.0-4.8); Lymphocytes % (A) 16 %; MCH 30.4 pg (25.0-35.0); MCHC 32.9 g/dL (31.0-37.0); MCV 92.3 fL (80.0-100.0); Mean Platelet Volume 7.7; Monocytes # (A) 0.6 k/uL (0-1.0); Monocytes % (A) 6 %; Neutrophils # (A) 7.9 k/uL (1.3-7.7); Neutrophils % (A) 75 %; Platelet Count 202 k/uL (150-450); RBC 4.07 m/uL (4.30-5.90); RDW 13.8 % (11.5-15.5); WBC 10.6 k/uL (3.8-10.6)
[2024-08-30 11:51] LABS: ALT 18 U/L (4-49); AST 25 U/L (17-59); African American GFR (CKD) 48 (>60 ml/min/1.73 sqM); Albumin 3.2 g/dL (3.5-5.0); Alkaline Phosphatase 87 U/L (38-126); Anion Gap 4 mmol/L; Blood Urea Nitrogen 29 mg/dL (9-20); Calcium 8.3 mg/dL (8.4-10.2); Carbon Dioxide 23 mmol/L (22-30); Chloride 114 mmol/L (98-107); Glucose 72 mg/dL (74-99); Non-African American GFR(CKD) 41 (>60 ml/min/1.73 sqM); Potassium 3.1 mmol/L (3.5-5.1); Sodium 141 mmol/L (137-145); Total Bilirubin 0.7 mg/dL (0.2-1.3); Total Protein 5.6 g/dL (6.3-8.2)
--- NOTE | 2024-08-30 11:59 | XR ---
EXAMINATION TYPE: XR chest 2V DATE OF EXAM: 08/30/2024 11:55 AM COMPARISON: 07/29/2019 CLINICAL INDICATION: Male, 78 years old with history of Weakness; [facility] TECHNIQUE: XR chest 2V Frontal and lateral views of the chest. FINDINGS: Lungs/Pleura: Right basilar airspace opacities are present, Similar opacities projecting over the spi ne from 2019. There is no evidence of pleural effusion, focal consolidation, or pneumothorax. Pulmonary vascularity: Unremarkable. Heart/mediastinum: Cardiomediastinal silhouette is unremarkable. Musculoskeletal: No acute osseous pathology. IMPRESSION: Right basilar airspace opacities concerning for pneumonia. [facility], , 08/30/2024 11:57 AM
[2024-08-30 12:04] LABS: Glucose,Whole Blood 85 mg/dL (70-110)
[2024-08-30] MEDS: POTASSIUM CHLORIDE ER 20 MEQ TAB.ER PO STA (12:04)
[2024-08-30] MEDS: SODIUM CHLORIDE 0.9% 1,000 ML IV STA (12:05)
[2024-08-30 13:23] LABS: Glucose,Whole Blood 184 mg/dL (70-110)
[2024-08-30 14:17] VITALS: BP 122/78; PULSE 67; RESP 24; TEMP 97.3
== END 2024-08-30 14:21 | disposition home or self-care (01) ==
LOC: EC 10:58
CPT/HCPCS: 36415; 71046; 80053; 85025; 93005; 96360; 96361; 99285

== ENCOUNTER → 2025-01-01 | Outpatient (CLI) | payer MEDICARE ==
[2025-01-01 15:46] LABS: African American GFR (CKD) 39 (>60 ml/min/1.73 sqM); Blood Urea Nitrogen 37 mg/dL (9-20); Non-African American GFR(CKD) 34 (>60 ml/min/1.73 sqM)
== END | disposition home or self-care (01) ==
LOC: RADCTMAIN 14:58 → LABWHC1 15:20
PROVIDERS: ATTEND Surgery Vascular Surgery
DX: I71.43 Infrarenal abdominal aortic aneurysm, without rupture (principal)
CPT/HCPCS: 82565; 84520

== ENCOUNTER 2025-01-11 12:02 | Day surgery (SDC) | payer MEDICARE ==
[~2025-01-11 12:02] MED LIST changes: -DEXAMETHASONE SOD PHOSPHATE 4 MG/ML 1 ML VIAL IV ONE; -HYDROmorphone 0.5 MG/0.5 ML SYRINGE IVP PRN; -MIDAZOLAM 2 MG/2 ML VIAL IV PRN; -ONDANSETRON 4 MG/2 ML VIAL IVP ONE; -Pre Op ABX Message 1 EACH MISC MISCELLANE ONE
[2025-01-11 12:34] LABS: Glucose,Whole Blood 246 mg/dL (70-110)
[2025-01-11 12:45] VITALS: RESP 18; TEMP 97.7
[2025-01-11] MEDS ORDERED: methylPREDNISolone ACETATE 80 MG/ML 1 ML VIAL ONE (13:59)
[2025-01-11] MEDS ORDERED: IOPAMIDOL M300 15ML VIAL ONE (13:59)
--- NOTE | 2025-01-11 14:17 | P.PCN ---
Description of Procedure: PREOPERATIVE DIAGNOSIS: 1- Lumbar Degenerative Disc Diseases 2-Lumbar spondylosis with Facet arthropathy without myelopathy. 3-lumbar spinal stenosis POSTOPERATIVE DIAGNOSIS: 1-lumbar degenerative disc disease. 2-lumbar spondylosis with facet arthropathy without myelopathy. 3-lumbar spinal stenosis. PROCEDURE Injection of radio contrast material into L5-S1 interspace, interpretation of epidurogram, injection of steroid at L5-S1 epidural space under fluoroscopic guidance. ANESTHESIA: Lidocaine 1% subcutaneously. In OR continuous pulse ox, EKG, blood pressure and verbal communication was maintained with the patient. EBL: Minimal PROCEDURE INDICATION: Before the procedure were discussed with the patient detailed procedure, alternatives, complications including infection, bleeding, nerve damage, paralysis all of which could be permanent. Patient understands and all questions were answered. PROCEDURE DESCRIPTION : After getting consent, patient in OR in prone position. Back was prepped with chlorhexidine and draped in sterile fashion. After injecting 10 mL of 1% lidocaine subcutaneously, a 20-gauge Tuohy needle was introduced at L5-S1 interspace with loss of resistance technique using a syringe filled with air. Negative CSF, negative blood, negative paresthesia. Needle position was confirmed with AP and lateral view of the fluoroscope. After repeat negative aspiration 2 mL of Omnipaque 200 water soluble contrast was injected. Contrast was noted in the epidural space. No contrast was noted into intrathecal or intravascular space. After repeat negative aspiration 6 mL solution was injected intermittently which consists of 5 mL of preservative-free normal saline mixed with 1 mL of 80 mg Depo-Medrol. Needle was withdrawn intact. Skin was cleansed and Band-Aids was applied. DISPOSITION / PLANS: The patient tolerated the procedure well. No complication. The patient was placed in a supine position and transferred to the recovery area in a stable condition for observation. There was no evidence of lower extremity motor or sensory deficit after the procedure. Patient was discharged from the recovery room after meeting discharge criteria. Home discharge instructions were given to the patient by the staff. The patient was reexamined prior to discharge. The patient will schedule a follow up in the clinic in 2-4 weeks.
--- NOTE | 2025-01-11 14:28 | FL ---
EXAMINATION TYPE: FL guided pain mgmt statistic DATE OF EXAM: 01/11/2025 CLINICAL INDICATION: Male, 79 years old with history of LESI; PHH, pain TECHNIQUE: Fluoroscopy. COMPARISON: None. FINDINGS: Fluoroscopic guidance was provided during pain relief procedure performed by Dr. Correia . A total of 8.0 seconds of fluoroscopic time was utilized during the procedure and one image was acqui red. Image acquired shows needle localization at lumbosacral junction. Degeneration changes of the visualized joints. Total DAP: 0.97589 mGym2. IMPRESSION: As Above. [facility], , 01/11/2025 2:26 PM
[2025-01-11 14:33] VITALS: BP 127/87; PULSE 81
== END 2025-01-11 14:45 | disposition home or self-care (01) ==
LOC: ORPAIN 12:02
PROVIDERS: ATTEND Anesthesiology
DX: M47.816 Spondylosis without myelopathy or radiculopathy, lumbar region (principal); M48.061 Spinal stenosis, lumbar region without neurogenic claudication; M51.369 Other intervertebral disc degeneration, lumbar region without mention of lumbar back pain or lower extremity pain; E11.9 Type 2 diabetes mellitus without complications; Z86.73 Personal history of transient ischemic attack (TIA), and cerebral infarction without residual deficits; Z79.01 Long term (current) use of anticoagulants; Z79.899 Other long term (current) drug therapy
CPT/HCPCS: 62323; Q9967; J1010

== ENCOUNTER → 2025-01-28 | Outpatient (CLI) | payer MEDICARE ==
[2025-01-28 11:43] VITALS: BP 102/72; PULSE 84; RESP 16; TEMP 98.1
--- NOTE | 2025-01-28 15:24 | P.PAINPG ---
PQRS Measure Charge Sheet Comment: HISTORY OF PRESENT ILLNESS: A 79 yr old wheelchair bound male w at side presents today w severe and chronic LBP > 1 yr secondary to L3-L4 Laminectomy for evaluation s/p MARGARET L4-L5 #1. Pt states he experienced 80 % pain relief x 2 wks s/p procedure. Pt states pain level is provoked at 7-8 /10 in intensity, constant, localized in the lumbar spine, predominantly axial, sharp in character w occasional shooting pain towards calves. Pain is provoked by standing > 10 min. Pain is alleviated by physician guided home stretches daily since 2019, heat, use of a wheelchair for ambulatory assistance, repositioning and rest . Inteventional procedures include MARGARET L4-L5 x1 Medications include Eliquis, [place] 10/325mg REVIEW OF ORGAN SYSTEMS: CONSTITUTIONAL: No fevers or chills. No recent weight loss. NEUROLOGICAL: + numbness and tingling along the distal extremities. No seizure disorders or headaches. MUSCULOSKELETAL: + pain PSYCHIATRIC: Denies current depression or suicidal thoughts. Physical Examinations : Constitutional : Cooperative , not in acute distress . Neurologic : Cranial nerve II to XII intact. No focal neurological deficits. Psychiatric : alert & oriented x 3. Matching mood & appropriate affect. Judgment & insight intact. Musculoskeletal : Cervical Spine Motor strength in the deltoid and biceps: Normal right side. Normal Left side Motor strength biceps and the wrist extensors: Normal right side . Normal left side Motor strength in the triceps muscle: Normal right side. Normal left side Deep tendon reflexes: Normal at the biceps. Normal at Brachioradialis. Normal at triceps Vertebral body tenderness to deep palpation over Cervical facet loading test: positive bilaterally Spurling test: positive bilaterally Neck distraction test: positive bilaterally Mark sign: positive bilaterally Lumbar spine Motor strength lower extremities ,thigh and legs 5/5 Right side , 5/5 Left side Deep tendon reflexes : Normal Knee Jerk. Normal Ankle Jerk Vertebral body tenderness over L4 Corbin Test positive BL L4-L5 Lumbar facet Loading Test: positive Right / positive Left Range of motion of the lumbar spine Flexion 30 degrees, extension 10 degrees Straight Leg Raise test: Left/ Right positive at degrees Cassandra test: positive right / positive left. Severe tenderness over the Sacroiliac joint on the Right / Left sides Gaenslen test: positive bilaterally Seated flexion test: positive bilaterally. Sacral spine : Severe tenderness over the Sacroiliac joint: right side / left side Range of motion: Flexion of the lumbar spine <60 degrees Range of motion: Extension of the lumbar spine <20 degrees Gaenslen's Test positive Cassandra test: positive right side / left side Thigh Thrust Test Sacral Thrust Test Imaging: MRI non contrast lumbar spine from 10/17/24 reviewed Assessment/ Plan : L3-L4 Laminectomy Recommendation of MARGARET L4-L5 #2. Would benefit from BL RFA L3-L5 also. Risks, benefits of procedure discussed and patient verbalized understanding. Admits to anti- coagulant use or medical history of diabetes. Protocol for discontinuation/ continuation of medications [place] procedure discussed. All questions answered. I have spent greater than 30 minutes on patient care today. Dr Min was available by phone for the evaluation of this patient. The time was used to review the medical records including relevant urine studies and Prescription history (MAPs), review of the available imaging, evaluation and examination of the patient, coordination of care with the medical staff and if applicable referring physicians, as well as creation of the medical record - Pain Location Bilateral Lower Back Non-Pharmacological Interventions: Heat, Inactivity Pharmacological Interventions: Epidural PQRS Narrative: Smoking Status Former smoker Hx Alcohol Use (MH) No Home Medications: Ambulatory Orders Cholecalciferol [Vitamin D3 (25 Mcg = 1000 Iu)] 1,000 unit PO DAILY 07/29/19 HYDROcodone/APAP 10-325MG [[place] 10-325] 1 tab PO Q4HR PRN 07/29/19 Insulin Glargine (Lantus) [Lantus Vial] 42 unit SQ DAILY PRN 07/29/19 Apixaban [Eliquis] 5 mg PO BID #60 tab 08/02/19 Albuterol Inhaler [Ventolin Hfa Inhaler] 2 puff INHALATION Q4-6H PRN 04/29/22 Budesonide-Formot 160-4.5 Mcg [Symbicort 160-4.5 Mcg Inhaler] 2 puff INHALATION BID 04/30/22 Bumetanide 1 mg PO DAILY 04/30/22 Sertraline [Zoloft] 50 mg PO DAILY 04/30/22 Tiotropium 2.5 Mcg/Puff [Spiriva Respimat 2.5 Mcg] 2 puff INHALATION DAILY 04/30/22 Rosuvastatin [Crestor] 20 mg PO DAILY 12/17/24 Spironolactone [Aldactone] 25 mg PO DAILY 12/17/24 Metoprolol Succinate (ER) [Toprol Xl] 12.5 mg PO DAILY 01/10/25 diazePAM [Valium] 5 mg PO DAILY 1 Days #2 tab 01/28/25 Controlled Substance Measures - Controlled Substance Measures Is patient prescribed a controlled substance at discharge?: No
== END ==
LOC: PNWHC3 11:07
PROVIDERS: ATTEND Specialist
DX: M54.16 Radiculopathy, lumbar region (principal); Z87.891 Personal history of nicotine dependence
CPT/HCPCS: 99211

== ENCOUNTER 2025-02-19 11:16 | Day surgery (SDC) | payer MEDICARE ==
[2025-02-19 12:13] VITALS: TEMP 97.1
[2025-02-19 12:18] LABS: Glucose,Whole Blood 156 mg/dL (70-110)
[2025-02-19] MEDS ORDERED: LACTATED RINGERS 1,000 ML IV SCH (13:07)
[2025-02-19] MEDS ORDERED: methylPREDNISolone ACETATE 40 MG/ML 1 ML VIAL ONE (13:12)
[2025-02-19] MEDS ORDERED: IOPAMIDOL M200 10 ML VIAL ONE (13:12)
--- NOTE | 2025-02-19 13:24 | P.PCN ---
Date of Procedure: 02/19/25 Procedure(s) Performed: PREOPERATIVE DIAGNOSIS: 1- Lumbar radiculopathy 2-postlaminectomy pain syndrome 3-lumbar spondylosis with lumbar facet arthropathy POSTOPERATIVE DIAGNOSIS: PROCEDURE 1. Lumbar epidural steroid injection under fluoroscopic guidance at the L4-5 level. (Fluoroscopy imaging was available in radiology department) 2. Lumbar epidurogram. ANESTHESIA: Lidocaine 1% 3 and then only. EBL: Minimal PROCEDURE INDICATION: The patient with low back pain and radiculitis symptoms unresponsive to conservative treatment. Fluoroscopy was used to optimize visualization of the needle placement and to maximize safety. PROCEDURE DESCRIPTION / TECHNIQUE: The patient was seen and identified in the preoperative area. Risks, benefits, complications including but not limited to infections ,bleeding ,allergic reaction to the medications ,nerve damage and not complete pain releife , and alternatives were discussed with the patient. The patient agreed to proceed with the procedure and signed the consent, and vital signs were stable. Patient was taken to the OR and time out was completed. The patient was placed in the prone position on procedure table and a pillow was placed under the abdomen to reduce lumbar lordosis. The lumbosacral area was prepped and draped in the usual sterile fashion.ere closely monitored during the procedure. Vital signs was monitered during the entire procedure. Using anterior-posterior fluoroscopy, the L4-5 interlaminar space was identified and the skin over this site was marked and then infiltrated with 1% lidocaine subcutaneously. Subsequently, a 18-gauge Tuohy epidural needle was inserted and advanced toward the epidural space using the ``Loss of resistance technique and guided by AP and lateral fluoroscopy. The correct needle position in the epidural space was verified with the injection of 2 mL of the water soluble contrast dye Isovue 200 contrast and observing an excellent epidurogram with the epidural spread of the dye, after negative aspiration for blood and CSF and in the absence of paresthesias. Again after negative aspiration, 5 ml mixture containing 40 mg of Depo-medrol ( Preservetive Free ), and 2 ml of preservative free Normal Saline, and 2 ml of preservative free lidocaine 1% solution was injected and a washout of epidurogram was seen. Needle was withdrawn intact, skin was cleansed, and bandages were applied. COMPLICATIONS: None DISPOSITION / PLANS: The patient was placed in a supine position and transferred to the recovery area in a stable condition for observation. There was no evidence of lower extremity motor or sensory deficit after the procedure. Patient was discharged from the recovery room after meeting discharge criteria. Home discharge instructions were given to the patient by the staff. The patient was reexamined prior to discharge. The patient will schedule a follow up in the clinic in 2-4 weeks. Eliquis last dose more than 3 days ago
--- NOTE | 2025-02-19 13:41 | FL ---
EXAMINATION TYPE: FL guided pain mgmt statistic Intraoperative/procedural fluoroscopic services were provided. CLINICAL INDICATION:Male, 79 years old with history of Lumbar Epid Inj; , [facility] FINDINGS: Fluoroscopic image demonstrates a lumbar epidural injection. No radiographic evidence for complicatio n. Total fluoroscopy time is 9.1 seconds. DAP: [id number] mGym2 Please see the operative/procedural note for further details. [facility], , 02/19/2025 1:39 PM
[2025-02-19 13:50] VITALS: BP 121/78; PULSE 86; RESP 18
== END 2025-02-19 13:51 | disposition home or self-care (01) ==
LOC: ORPAIN 11:16
PROVIDERS: ATTEND Specialist
DX: M47.26 Other spondylosis with radiculopathy, lumbar region (principal); M96.1 Postlaminectomy syndrome, not elsewhere classified; E11.9 Type 2 diabetes mellitus without complications; Z79.01 Long term (current) use of anticoagulants
CPT/HCPCS: 62323; Q9966; J1010

== ENCOUNTER → 2025-03-13 | Outpatient (CLI) | payer MEDICARE ==
[2025-03-13 11:03] VITALS: BP 110/73; PULSE 80; RESP 18; TEMP 99.1
--- NOTE | 2025-03-13 15:54 | P.PAINPG ---
PQRS Measure Charge Sheet Comment: HISTORY OF PRESENT ILLNESS: A 79 yr old wheelchair bound male w at side presents today w severe and chronic LBP > 1 yr secondary to L2-L4 Laminectomy for evaluation s/p MARGARET L4-L5 #2. Pt states he experienced 0 % pain relief x 2-3 wks s/p procedure. Pt states pain level is provoked at 9 /10 in intensity, constant, localized in the lumbar spine, predominantly axial, sharp in character w occasional shooting pain towards calves. Pain is provoked by standing > 10 min. Pain is alleviated by physician guided home stretches daily since 2019, heat, use of a wheelchair for ambulatory assistance, repositioning and rest . Inteventional procedures include L2-L4 Laminectomy, MARGARET L4-L5 x2 Medications include Eliquis, [place] 10/325mg REVIEW OF ORGAN SYSTEMS: CONSTITUTIONAL: No fevers or chills. No recent weight loss. NEUROLOGICAL: + numbness and tingling along the distal extremities. No seizure disorders or headaches. MUSCULOSKELETAL: + pain PSYCHIATRIC: Denies current depression or suicidal thoughts. Physical Examinations : Constitutional : Cooperative , not in acute distress . Neurologic : Cranial nerve II to XII intact. No focal neurological deficits. Psychiatric : alert & oriented x 3. Matching mood & appropriate affect. Judgment & insight intact. Musculoskeletal : Cervical Spine Motor strength in the deltoid and biceps: Normal right side. Normal Left side Motor strength biceps and the wrist extensors: Normal right side . Normal left side Motor strength in the triceps muscle: Normal right side. Normal left side Deep tendon reflexes: Normal at the biceps. Normal at Brachioradialis. Normal at triceps Vertebral body tenderness to deep palpation over Cervical facet loading test: positive bilaterally Spurling test: positive bilaterally Neck distraction test: positive bilaterally Mark sign: positive bilaterally Lumbar spine Motor strength lower extremities ,thigh and legs 5/5 Right side , 5/5 Left side Deep tendon reflexes : Normal Knee Jerk. Normal Ankle Jerk Vertebral body tenderness over L4 Corbin Test positive BL L4-L5 Lumbar facet Loading Test: positive Right / positive Left L4-L5/ L5-S1 Range of motion of the lumbar spine Flexion 30 degrees, extension 10 degrees Straight Leg Raise test: Left/ Right positive at degrees Cassandra test: positive right / positive left. Severe tenderness over the Sacroiliac joint on the Right / Left sides Gaenslen test: positive bilaterally Seated flexion test: positive bilatera lly. Sacral spine : Severe tenderness over the Sacroiliac joint: right side / left side Range of motion: Flexion of the lumbar spine <60 degrees Range of motion: Extension of the lumbar spine <20 degrees Gaenslen's Test positive Cassandra test: positive right side / left side Thigh Thrust Test Sacral Thrust Test Imaging: MRI non contrast lumbar spine from 10/17/24 reviewed Assessment/ Plan : L2-L4 Laminectomy Recommendation of RADHA RITCHIE L4-L5/ L5-S1 #1. Risks, benefits of procedure discussed and patient verbalized understanding. Admits to anti- coagulant use or medical history of diabetes. Protocol for discontinuation/ continuation of medications [place] procedure discussed. Minimal anesthesia including Fentanyl and Versed if clinically indicated. All questions answered. I have spent greater than 30 minutes on patient care today. Dr Min was available by phone for the evaluation of this patient. The time was used to review the medical records including relevant urine studies and Prescription history (MAPs), review of the available imaging, evaluation and examination of the patient, coordination of care with the medical staff and if applicable referring physicians, as well as creation of the medical record - Pain Location Lower Back Non-Pharmacological Interventions: Inactivity PQRS Narrative: Smoking Status Former smoker Hx Alcohol Use (MH) No Home Medications: Ambulatory Orders Cholecalciferol [Vitamin D3 (25 Mcg = 1000 Iu)] 1,000 unit PO DAILY 07/29/19 HYDROcodone/APAP 10-325MG [[place] 10-325] 1 tab PO Q4HR PRN 07/29/19 Insulin Glargine (Lantus) [Lantus Vial] 44 unit SQ DAILY PRN 07/29/19 Apixaban [Eliquis] 5 mg PO BID #60 tab 08/02/19 Albuterol Inhaler [Ventolin Hfa Inhaler] 2 puff INHALATION Q4-6H PRN 04/29/22 Budesonide-Formot 160-4.5 Mcg [Symbicort 160-4.5 Mcg Inhaler] 2 puff INHALATION BID 04/30/22 Bumetanide 1 mg PO DAILY 04/30/22 Sertraline [Zoloft] 50 mg PO DAILY 04/30/22 Tiotropium 2.5 Mcg/Puff [Spiriva Respimat 2.5 Mcg] 2 puff INHALATION DAILY 04/30/22 Rosuvastatin [Crestor] 20 mg PO DAILY 12/17/24 Spironolactone [Aldactone] 25 mg PO DAILY 12/17/24 Metoprolol Succinate (ER) [Toprol Xl] 12.5 mg PO DAILY 01/10/25 Controlled Substance Measures - Controlled Substance Measures Is patient prescribed a controlled substance at discharge?: No
== END ==
LOC: PNWHC3 10:36
PROVIDERS: ATTEND Specialist
DX: M96.1 Postlaminectomy syndrome, not elsewhere classified (principal); G89.29 Other chronic pain; Z87.891 Personal history of nicotine dependence
CPT/HCPCS: 99211

== ENCOUNTER → 2025-04-12 | Outpatient (CLI) | payer MEDICARE ==
--- NOTE | 2025-04-12 19:31 | PE ---
EXAMINATION TYPE: PET CT fusion skull to thigh DATE OF EXAM: 04/12/2025 CLINICAL INDICATION:Male, 79 years old with history of R91.1 LUNG NODULE; TECHNIQUE: Following the intravenous administration of 11.69 mCi of F-18 FDG, whole body images are performed from the skull base to the Mid thigh. Images are reviewed on the computer in the coronal, axial, and sagittal planes. Reconstructed rotating images are created on independent workstation an d reviewed on the computer. A non-contrast CT is performed in conjunction with the PET scan. Glucos e level 106 mg/dL CT DLP: 1677 mGycm, Automated exposure control for dose reduction was used. COMPARISON: CT 08/30/2023, PET/CT None, MRI: None FINDINGS: Mediastinal SUV mean is 2.2. Hepatic parenchyma SUV mean is 2.2. SKULL BASE AND NECK: * Indeterminate heterogenous uptake within the left parotid gland max SUV 11.5. * Right parotid gland may be surgically absent. Small focus of uptake in the surgical bed max SUV 5. 7. CHEST, MEDIASTINUM, AND HILAR REGION: Suspicious uptake identified; examples include: * Right lower lung masslike consolidation max SUV 18.7 measuring 43 x 47 mm. * right pulmonary hilum lymph nodes max SUV 7.6 which is poorly measured given lack of IV contrast. * AP window lymph node max SUVs a 8.0 measuring 12 mm in short axis.. ABDOMEN AND PELVIS: No suspicious radiotracer activity. MUSCULOSKELETAL STRUCTURES: No suspicious radiotracer activity. OTHER CT: Mild cardiomegaly with severe coronary artery atherosclerosis. Moderate spur aortic valve c alcifications. Mild gynecomastia changes. Calcification at the carotid bifurcation in the intracrania l vasculature. Bilaterally aphakia. Lipomatous atrophy changes of the pancreas. Simple appearing righ t renal and left renal cortical cyst. Infrarenal abdominal aortic aneurysm measuring up to 5.0 cm. Fa t-containing umbilical hernia. Fat-containing inguinal hernias. IMPRESSION: 1. 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 Abnormal uptake within the left parotid gland with small focus of uptake in the right parotid gla nd. Correlate with history. Further evaluation with ultrasound may be of benefit. Findings could repr esent with embedded tumors versus parotiditis on the left. [facility], Workstation: [id number], 04/12/2025 7:28 PM
== END | disposition home or self-care (01) ==
LOC: RADPETMAIN 14:58
PROVIDERS: ATTEND Internal Medicine Pulmonary Disease
DX: R91.8 Other nonspecific abnormal finding of lung field (principal)
CPT/HCPCS: 78815; A9552

== ENCOUNTER 2025-04-26 07:42 | Day surgery (SDC) | payer MEDICARE ==
[2025-04-26 08:11] VITALS: TEMP 97.2
[2025-04-26] MEDS: IV FLUID CONTINUATION 1,000 ML IV ONE ×2 (08:24→08:59)
[2025-04-26] MEDS: LACTATED RINGERS 1,000 ML IV SCH (08:25)
[2025-04-26 08:33] LABS: Glucose,Whole Blood 143 mg/dL (70-110)
[2025-04-26] MEDS ORDERED: fentaNYL (PF) 50 MCG/ML 2 ML AMP ONE (08:44)
[2025-04-26] MEDS ORDERED: MIDAZOLAM 2 MG/2 ML VIAL ONE (08:44)
[2025-04-26] MEDS ORDERED: ROPIVACAINE 5 MG/ML 30 ML VIAL ONE (08:44)
--- NOTE | 2025-04-26 08:57 | P.PCN ---
Date of Procedure: 04/26/25 Procedure(s) Performed: PREOPERATIVE DIAGNOSIS : 1- Lumbar spondylosis with Facet Arthropathy without myelopathy . 2- Lumber degenerative disc disease POSTOPERATIVE DIAGNOSIS: 1- Lumbar spondylosis with Facet Arthropathy without myelopathy . 2- Lumber degenerative disc disease PROCEDURE: Diagnostic bilateral L3 , L4 , L5 medial branch block under fluoroscopy guidance(fluoroscopy images available in the radiology Department ) ( To target the facet joint between Bilateral L4-5 , L5-S1 )#1st ANESTHESIA: moderate sedation with intravenous Versed 1 mg ,and Fentanyl 50 mcg. (Sedation start time 08:44, end time 08:52 ) EBL: Minimal COMPLICATION: None PROCEDURE INDICATION: Chronic low back pain secondary to Facet arthropathy unresponsive to conservative treatment. PROCEDURE DESCRIPTION: the patient was seen and identified in the preop holding area , risks and benefits and possible complications of the procedure and alternative were discussed with the patient, and the patient agreed to proceed with the procedure and signed the consent and vital signs monitored during the procedure and fluoroscopy was used to maximize the benefit and accuracy of the needle placement, and sedation was given to decrease patient anxiety, patient was taken to the procedure room and placed in prone position vital signs monitored in the back prepped with chlorhexidine X3 then under strict sterile technique using a right oblique fluoroscopy ,the junction of the transverse process and the superior articulating process of the right L3 , L4 , and L5 vertebra which corresponding to the fluoroscopy image of the eye of the Ronak dog on the block side for the medial branches and subsequently , after local infiltration of skin and subcu tissuies with Ropivacaine 0.5 % , one mL at each level ,then 23-gauge Quincke-type needles , 3 needle was used , each one of them placed at the junction of the base of the transverse process and the superior articular process at the appropriate level, and the needle was advanced until the periosteum contacted, needle placement confirmed with AP oblique and lateral view and after appropriate needle placement confirmed, and after negative aspiration for heme and CSF and there was no paresthesia 1-1/2 mL of Ropivacaine 0.5% , then half mL injected at each level after negative aspiration the needle subsequently removed and the same procedure repeated for the left side at left side at L3 , L4 and L5 levels. At the end of the procedure and the needles removed and a bandage applied after the skin was cleaned the cleaning solution patient taken to recovery room in stable condition and monitors in the recovery room for 20-30 minutes and discharged home in stable condition after discharge criteria met and patient will follow up with the pain clinic in 2-4 weeks
[2025-04-26 09:22] VITALS: BP 130/88; PULSE 72; RESP 20
--- NOTE | 2025-04-26 12:19 | FL ---
EXAMINATION TYPE: FL guided pain mgmt statistic DATE OF EXAM: 04/26/2025 FLUOROSCOPY BILAT LUMBAR FACET BLOCKS, 20 SEC FLUORO, DAP .[id number] mGym2 4 images are submitted. [facility], , 04/26/2025 12:17 PM
== END 2025-04-26 09:46 | disposition home or self-care (01) ==
LOC: ORPAIN 07:42
PROVIDERS: ATTEND Specialist
DX: M47.816 Spondylosis without myelopathy or radiculopathy, lumbar region (principal); M51.360 Other intervertebral disc degeneration, lumbar region with discogenic back pain only
CPT/HCPCS: 64493; 64494; J2250; J3010; J2795

== ENCOUNTER → 2025-05-20 | Outpatient (CLI) | payer MEDICARE ==
[2025-05-20 11:48] VITALS: BP 117/81; PULSE 96; RESP 14; TEMP 97.7
--- NOTE | 2025-05-20 17:30 | P.PAINPG ---
PQRS Measure Charge Sheet Comment: HISTORY OF PRESENT ILLNESS: A 79 yr old wheelchair bound male w at side presents today w history of lung CA w mets, severe and chronic LBP > 1 yr secondary to L2-L4 Laminectomy for evaluation s/p BL MBB L4-L5/ L5-S1 #1. Pt states he experienced 50 % pain relief x 4 hrs s/p procedure. Pt states pain level is provoked at 9 /10 in intensity, constant, localized in the lumbar spine, predominantly axial, sharp in character without shooting pain Pain is provoked by standing > 10 min. Pain is alleviated by physician guided home stretches daily since 2019, heat, use of a wheelchair for ambulatory assistance, repositioning and rest . Inteventional procedures include L2-L4 Laminectomy, MARGARET L4-L5 x2, BL MBB L3-L5 x1 Medications include Eliquis, [place] 10/325mg REVIEW OF ORGAN SYSTEMS: CONSTITUTIONAL: No fevers or chills. No recent weight loss. NEUROLOGICAL: + numbness and tingling along the distal extremities. No seizure disorders or headaches. MUSCULOSKELETAL: + pain PSYCHIATRIC: Denies current depression or suicidal thoughts. Physical Examinations : Constitutional : Cooperative , not in acute distress . Neurologic : Cranial nerve II to XII intact. No focal neurological deficits. Psychiatric : alert & oriented x 3. Matching mood & appropriate affect. Judgment & insight intact. Musculoskeletal : Cervical Spine Motor strength in the deltoid and biceps: Normal right side. Normal Left side Motor strength biceps and the wrist extensors: Normal right side . Normal left side Motor strength in the triceps muscle: Normal right side. Normal left side Deep tendon reflexes: Normal at the biceps. Normal at Brachioradialis. Normal at triceps Vertebral body tenderness to deep palpation over Cervical facet loading test: positive bilaterally Spurling test: positive bilaterally Neck distraction test: positive bilate rally Mark sign: positive bilaterally Lumbar spine Motor strength lower extremities ,thigh and legs 5/5 Right side , 5/5 Left side Deep tendon reflexes : Normal Knee Jerk. Normal Ankle Jerk Vertebral body tenderness over L4 Corbin Test positive BL L4-L5 Lumbar facet Loading Test: positive Right / positive Left L4-L5/ L5-S1 Range of motion of the lumbar spine Flexion 30 degrees, extension 10 degrees Straight Leg Raise test: Left/ Right positive at degrees Cassandra test: positive right / positive left. Severe tenderness over the Sacroiliac joint on the Right / Left sides Lawrence test: positive bilaterally Seated flexion test: positive bilaterally. Sacral spine : Severe tenderness over the Sacroiliac joint: right side / left side Range of motion: Flexion of the lumbar spine <60 degrees Range of motion: Extension of the lumbar spine <20 degrees Gaenslen's Test positive Cassandra test: positive right side / left side Thigh Thrust Test Sacral Thrust Test Imaging: MRI non contrast lumbar spine from 10/17/24 reviewed Assessment/ Plan : L2-L4 Laminectomy Recommendation of medication management. Discontinue [place] as pt and at side state it is ineffective. Percocet 7.5/325mg #90 w RF. Opiate/ narcotic agreement signed 05/20/25. Use, side effects, adverse reactions, safe storage di scussed. All questions answered. I have spent greater than 30 minutes on patient care today. Dr Min was available by phone for the evaluation of this patient. The time was used to review the medical records including relevant urine studies and Prescription history (MAPs), review of the available imaging, evaluation and examination of the patient, coordination of care with the medical staff and if applicable referring physicians, as well as creation of the medical record - Pain Location Bilateral Lower Back Non-Pharmacological Interventions: Heat, Home Exercise, Ice, Inactivity, Position/Reposition, Relaxation Technique, Sitting, Stretching Pharmacological Interventions: Epidural, PRN Medication, Scheduled Medication, Topical Medication PQRS Narrative: Smoking Status Former smoker Hx Alcohol Use (MH) No Home Medications: Ambulatory Orders Cholecalciferol [Vitamin D3 (25 Mcg = 1000 Iu)] 1,000 unit PO DAILY 07/29/19 Insulin Glargine (Lantus) [Lantus Vial] 44 unit SQ QAM PRN 07/29/19 Apixaban [Eliquis] 5 mg PO BID #60 tab 08/02/19 Albuterol Inhaler [Ventolin Hfa Inhaler] 2 puff INHALATION Q4-6H PRN 04/29/22 Budesonide-Formot 160-4.5 Mcg [Symbicort 160-4.5 Mcg Inhaler] 2 puff INHALATION BID 04/30/22 Bumetanide 1 mg PO DAILY 04/30/22 Sertraline [Zoloft] 50 mg PO DAILY 04/30/22 Tiotropium 2.5 Mcg/Puff [Spiriva Respimat 2.5 Mcg] 2 puff INHALATION DAILY 04/30/22 Rosuvastatin [Crestor] 20 mg PO DAILY 12/17/24 Spironolactone [Aldactone] 25 mg PO DAILY 12/17/24 oxyCODONE HCL/ACETAMINOPHEN [Percocet 7.5-325 mg Tablet] 1 each PO TID PRN 30 Days #90 tab 05/20/25 oxyCODONE HCL/ACETAMINOPHEN [Percocet 7.5-325 mg] 1 tab PO TID PRN 30 Days #90 tab 05/20/25 Controlled Substance Measures - Controlled Substance Measures Is patient prescribed a controlled substance at discharge?: Yes When asked, does pt state using other controlled substances?: Yes If prescribed controlled substance>3 days was MAPS reviewed?: Yes If Rx opioid, was Start Talking consent form obtained?: Yes Was information provided regarding opioid addiction?: Yes
== END ==
LOC: PNWHC3 11:25
PROVIDERS: ATTEND Specialist
DX: Z98.890 Other specified postprocedural states (principal); Z87.891 Personal history of nicotine dependence
CPT/HCPCS: 99211